=== PATIENT | male | born 1935 | race Caucasian/White ===

== ENCOUNTER 2017-09-03 11:32 | Emergency (ER) | payer MEDICARE, BC ==
--- NOTE | 2017-09-03 12:10 | EDM.PDOC ---
ED HPI GENERAL MEDICAL PROBLEM - General Chief Complaint: Laceration Stated Complaint: skin tear Time Seen by Provider: 09/03/17 11:35 Source of Information: Reports: Patient History Limitations: Reports: No Limitations - History of Present Illness INITIAL COMMENTS - FREE TEXT/NARRATIVE: Patient is a 82-year-old who comes in with multiple skin tear in the left hand dorsal aspect and left forearm he states he was in his office when he fell off the chair and scraped himself this happened at around 1031 hour prior to arrival Onset: Today Duration: Hour(s):, Other (Bleeding has stopped at the time of arrival) Location: Reports: Upper Extremity, Left Severity: Mild Improves with: Reports: None Worsens with: Reports: None Context: Reports: Activity Associated Symptoms: Reports: No Other Symptoms Left Arm Pain Score (Numeric/FACES): 2 - Related Data Allergies Allergy/AdvReac Type Severity Reaction Status Date / Time Sulfa (Sulfonamide Allergy Hives Verified 09/03/17 11:35 Antibiotics) Home Meds: Home Meds Albuterol [Ventolin HFA] 2 puff INH ONETIME PRN 12/20/13 [History] Enalapril [Vasotec] 10 mg PO QAM 12/20/13 [History] Fluticasone Propionate [Flovent HFA 220 MCG] 1 inh PO BID 12/20/13 [History] Insulin Glarg,Human.Rec.Analog [Lantus] 18 unit SUBCUT BEDTIME 12/20/13 [History ] SitaGLIPtin [Januvia] 100 mg PO QAM 12/20/13 [History] metFORMIN HCl [Metformin HCl] 1,000 mg PO QAM 12/20/13 [History] metFORMIN HCl [Metformin HCl] 500 mg PO QPM 12/20/13 [History] Lisinopril 10 mg PO DAILY 06/11/16 [History] Aspirin [Halfprin] 81 mg PO DAILY 09/03/17 [History] Sertraline [Zoloft] 25 mg PO DAILY 09/03/17 [History] Simvastatin [Zocor] 40 mg PO BEDTIME 09/03/17 [History] Past Medical History Other HEENT History: wears glasses Cardiovascular History: Reports: Hypertension Respiratory History: Reports: Asthma Gastrointestinal History: Reports: Chronic Constipation Endocrine/Metabolic History: Reports: Diabetes, Type II Social & Family History - Tobacco Use Smoking Status *Q: Never Smoker Years of Tobacco use: 2 Used Tobacco, but Quit: Yes Second Hand Smoke Exposure: No - Caffeine Use Caffeine Use: Reports: Coffee - Alcohol Use Days Per Week of Alcohol Use: 0 Number of Drinks Per Day: 2 Total Drinks Per Week: 0 - Recreational Drug Use Recreational Drug Use: No Recreational Drug Last Use: 4 coffee per day, 1 pop 3 times per week - Living Situation & Occupation Living situation: Reports: , with Family Occupation: Retired ED ROS GENERAL - Review of Systems Review Of Systems: See Below Constitutional: Reports: No Symptoms HEENT: Reports: No Symptoms Respiratory: Reports: No Symptoms Cardiovascular: Reports: No Symptoms Endocrine: Reports: Other (Diabetes type 2) GI/Abdominal: Reports: No Symptoms : Reports: No Symptoms Musculoskeletal: Reports: No Symptoms Skin: Reports: Bruising, Wound (Patient presents with multiple skin tears 3 in the left hand dorsal aspect 1 in the left forearm) Neurological: Reports: No Symptoms Psychiatric: Reports: No Symptoms Hematologic/Lymphatic: Reports: No Symptoms Immunologic: Reports: No Symptoms ED EXAM, SKIN/RASH Exam: See Below Exam Limited By: No Limitations General Appearance: Alert, WD/WN, No Apparent Distress Eye Exam: Bilateral Eye: EOMI, PERRL Ears: Normal External Exam, Normal Canal, Hearing Grossly Normal, Normal TMs Nose: Normal Inspection, Normal Mucosa, No Blood Throat/Mouth: Normal Inspection, Normal Lips, Normal Teeth, Normal Gums, Normal Oropharynx, Normal Voice, No Airway Compromise Head: Atraumatic, Normocephalic Neck: Normal Inspection, Supple, Non-Tender, Full Range of Motion Respiratory/Chest: No Respiratory Distress, Lungs Clear, Normal Breath Sounds, No Accessory Muscle Use, Chest Non-Tender Cardiovascular: Normal Peripheral Pulses, Regular Rate, Rhythm, No Edema, No Gallop, No JVD, No Murmur, No Rub GI/Abdominal: Normal Bowel Sounds, Soft, Non-Tender, No Organomegaly, No Distention, No Abnormal Bruit, No Mass (Male) Exam: Deferred Rectal (Males) Exam: Deferred Back Exam: Normal Inspection, Full Range of Motion, NT Extremities: Other (Left hand 3 small tears edges on the tear were ragged the first tear over the second MP joint was very raggedy measured about 2 cm the second abrasion and skin tear was proximal MP joint of the third finger and was 2 cm in length and this again was irregular the third abrasion laceration was over the fourth MP joint proximal and again was irregular and the length was 2cm. the forearm abrasion was 4 cm and this was in a U-shape. ) Neurological: Alert, Oriented, CN II-XII Intact, Normal Cognition, Normal Gait, Normal Reflexes, No Motor/Sensory Deficits Skin: Other (Multiple skin tags over her left forearm and left hand please see above description) Course - Vital Signs Text/Narrative:: All wounds were cleaned with saline after appropriate cleaning using the blunt part of a forceps the skin was rolled back to position after approximating the skin we use Dermabond to keep it in place this was done to all 4 wounds Last Recorded V/S: Last Vital Signs Temp 98 F 09/03/17 12:20 Pulse 89 09/03/17 12:20 Resp 16 09/03/17 12:20 BP 138/74 09/03/17 12:20 Pulse Ox 98 09/03/17 12:20 Departure - Departure Time of Disposition: 12:25 Disposition: Home, Self-Care 01 Condition: Good Clinical Impression: Broken skin - Discharge Information Instructions: Laceration Care, Adult, Tissue Adhesive Wound Care, [id number] Referrals: Rebeca Campbell NP [Primary Care Provider] - Forms: ED Department Discharge Care Plan Goals: Follow-up with primary in 1 week keep wounds clean follow handout instructions if any concerns or changes return to ER or primary care provider.
[2017-09-03 12:21] VITALS: BP 138/74
== END 2017-09-03 12:50 | disposition home or self-care (01) ==
LOC: LL.ED 11:32
DX: S51.812A Laceration without foreign body of left forearm, initial encounter (principal); I10 Essential (primary) hypertension; J45.909 Unspecified asthma, uncomplicated; Z79.4 Long term (current) use of insulin; Z79.899 Other long term (current) drug therapy; W07.XXXA Fall from chair, initial encounter
CPT/HCPCS: 12002; 12004; 99282

== ENCOUNTER 2017-09-21 13:17 | Emergency (ER) | payer MEDICARE, BC ==
[2017-09-21 13:20] VITALS: BP 148/79
--- NOTE | 2017-09-21 14:03 | EDM.PDOC ---
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 Has had problems similar to this in the past, ultimately requiring having GI at [facility] perform esophageal dilation. He reports no problems swallowing any specific food today, and has not had any PO intake since 0700. Notes that it became hard for him to swallow saliva. Cannot swallow water. Patient gets nauseated and is spitting it back up. Has funny "full" feeling in esophagus. No other complaints. Upper Epigastric Pain Score (Numeric/FACES): 6 - Related Data Allergies Allergy/AdvReac Type Severity Reaction Status Date / Time Sulfa (Sulfonamide Allergy Hives Verified 09/21/17 13:26 Antibiotics) Home Meds: Home Meds Albuterol [Ventolin HFA] 2 puff INH ONETIME PRN 12/20/13 [History] Enalapril [Vasotec] 10 mg PO QAM 12/20/13 [History] Fluticasone Propionate [Flovent HFA 220 MCG] 1 inh PO BID 12/20/13 [History] Insulin Glarg,Human.Rec.Analog [Lantus] 18 unit SUBCUT BEDTIME 12/20/13 [History ] SitaGLIPtin [Januvia] 100 mg PO QAM 12/20/13 [History] metFORMIN HCl [Metformin HCl] 1,000 mg PO QAM 12/20/13 [History] metFORMIN HCl [Metformin HCl] 1,000 mg PO QPM 12/20/13 [History] Lisinopril 10 mg PO DAILY 06/11/16 [History] Aspirin [Halfprin] 81 mg PO DAILY 09/03/17 [History] Sertraline [Zoloft] 25 mg PO DAILY 09/03/17 [History] Simvastatin [Zocor] 40 mg PO BEDTIME 09/03/17 [History] Acetaminophen [Acetaminophen Extra Strength] 1,000 mg PO DAILY 09/21/17 [History ] Past Medical History Other HEENT History: wears glasses Cardiovascular History: Reports: Hypertension Respiratory History: Reports: Asthma Gastrointestinal History: Reports: Chronic Constipation Endocrine/Metabolic History: Reports: Diabetes, Type II Social & Family History - Family History Family Medical History: Noncontributory - Tobacco Use Smoking Status *Q: Never Smoker Years of Tobacco use: 2 Used Tobacco, but Quit: Yes Month Tobacco Last Used: 0 Second Hand Smoke Exposure: No - Caffeine Use Caffeine Use: Reports: Coffee - Alcohol Use Days Per Week of Alcohol Use: 0 Number of Drinks Per Day: 2 Total Drinks Per Week: 0 - Recreational Drug Use Recreational Drug Use: No Recreational Drug Last Use: 4 coffee per day, 1 pop 3 times per week - Living Situation & Occupation Living situation: Reports: , with Family Occupation: Retired ED ROS GENERAL - Review of Systems Review Of Systems: ROS reveals no pertinent complaints other than HPI. Constitutional: Denies: Fever, Chills, Diaphoresis HEENT: Reports: No Symptoms Respiratory: Reports: No Symptoms. Denies: Wheezing, Cough Cardiovascular: Denies: Chest Pain, Dyspnea on Exertion GI/Abdominal: Reports: Difficulty Swallowing, Nausea. Denies: Abdominal Pain, Constipation, Diarrhea, Hematemesis, Vomiting : Reports: No Symptoms Musculoskeletal: Reports: No Symptoms Skin: Reports: No Symptoms Neurological: Reports: No Symptoms Psychiatric: Reports: No Symptoms ED EXAM, GENERAL - Physical Exam Exam: See Below Exam Limited By: No Limitations General Appearance: Alert, WD/WN, Other (Patient sitting comfortably. No acute distress. Spitting saliva into emesis bag periodically. ) Eye Exam: Bilateral Eye: EOMI, PERRL Ears: Normal External Exam Nose: No: Nasal Swelling, Nasal Drainage Throat/Mouth: Normal Lips, Normal Voice, No Airway Compromise Head: Atraumatic, Normocephalic Neck: Normal Inspection, Supple, Non-Tender, Full Range of Motion Respiratory/Chest: No Respiratory Distress, Lungs Clear, Normal Breath Sounds, No Accessory Muscle Use Cardiovascular: Regular Rate, Rhythm GI/Abdominal: Soft, Non-Tender Rectal (Males) Exam: Deferred Back Exam: No: CVA Tenderness (L), CVA Tenderness (R) Extremities: Normal Capillary Refill Neurological: Alert, Oriented, Normal Gait Psychiatric: Normal Affect, Normal Mood Skin Exam: Warm, Intact, Normal Color Course - Vital Signs Last Recorded V/S: Last Vital Signs Temp 36.2 C 09/21/17 13:19 Pulse 76 09/21/17 13:19 Resp 18 09/21/17 13:19 BP 148/79 H 09/21/17 13:19 Pulse Ox 98 09/21/17 13:19 - Re-Assessments/Exams Free Text/Narrative Re-Assessment/Exam: Call placed to [facility]. Discussed patient with , from GI. Suspect esophageal stricture. wished for patient to come up immediately and present to the Endoscopy unit as well as remain NPO and be definitively treated for stricture if that is indeed what is causing today's complaint. Patient said that his daughter would be able to drive him up. Patient immediately left the ER in order to get on the road to [place]. Departure - Departure Time of Disposition: 14:02 Disposition: DC/Tfer to Acute Hospital 02 Condition: Good Clinical Impression: Dysphagia Qualifiers: Dysphagia type: unspecified Qualified Code(s): R13.10 - Dysphagia, unspecified - Discharge Information Referrals: Rebeca Campbell FOREPART RASPER [Primary Care Provider] - Forms: ED Department Discharge Additional Instructions: Drive directly to [facility] in [place] with your daughter. Do not eat or drink anything. Present to second floor of [facility], Endoscopy. is expecting you and will evaluate this problem and recommend appropriate treatment.
== END 2017-09-21 14:03 ==
LOC: LL.ED 13:17
DX: R13.10 Dysphagia, unspecified (principal); I10 Essential (primary) hypertension; E11.9 Type 2 diabetes mellitus without complications; Z88.2 Allergy status to sulfonamides; Z79.4 Long term (current) use of insulin; Z79.82 Long term (current) use of aspirin; Z79.899 Other long term (current) drug therapy
CPT/HCPCS: 99284

== ENCOUNTER 2018-12-12 21:25 | Emergency (ER) | payer MEDICARE, BC ==
--- NOTE | 2018-12-12 22:37 | EDM.PDOC ---
ED HPI GENERAL MEDICAL PROBLEM - General Chief Complaint: Back Pain or Injury Stated Complaint: FALL, LEFT HIP PAIN Time Seen by Provider: 12/12/18 21:57 Source of Information: Reports: Patient History Limitations: Reports: No Limitations - History of Present Illness INITIAL COMMENTS - FREE TEXT/NARRATIVE: Patient fell in bathroom while getting ready to go to bed. Was in stocking feet at the time. Isn't certain exactly why he fell. Family members present say that patient's balance has had issues since he had a previous stroke. Patient denies hitting head or LOC. Only complaint is discomfort in left lower back area. No numbness/tingling of limbs. Able to move legs. Denies pain in pelvis/limbs/ chest/neck. No pain along spine. No headache. Patient denies vision changes. No SOB/respiratory changes. No nausea/emesis/ abdominal pain. Has chronic constipation. No bowel movement per patient/family in about 2 days. Is eating/drinking ok. Noted by EMS to have mild abrasions on elbows, and small amount blood behind left ear where hearing aid appears to have scraped skin. He denies wearing his glasses when he fell. O2 sats 92% on room air. Patient has history of COPD. He denies SOB/increased respiratory difficulties. Left Back Pain Score (Numeric/FACES): 8 - Related Data Allergies Allergy/AdvReac Type Severity Reaction Status Date / Time Sulfa (Sulfonamide Allergy Hives Verified 12/12/18 21:44 Antibiotics) Home Meds: Home Meds Insulin Glarg,Human.Rec.Analog [Lantus] 4 unit SUBCUT BEDTIME 12/20/13 [History] metFORMIN HCl [Metformin HCl] 1,000 mg PO QAM 12/20/13 [History] metFORMIN HCl [Metformin HCl] 500 mg PO QPM 12/20/13 [History] Sertraline [Zoloft] 75 mg PO DAILY 09/03/17 [History] Amiodarone [Cordarone] 0.5 tab PO DAILY 08/25/18 [History] Fluticasone/Salmeterol [Advair 250-50 Diskus] 1 inh INH BID 08/25/18 [History] Ipratropium/Albuterol Sulfate [Iprat-Albut 0.5-3(2.5) MG/3 ML] 1 ampule INH QID 08/25/18 [History] Magnesium Hydroxide [Milk of Magnesia] 60 ml PO DAILY 08/25/18 [History] Metoprolol Succinate 25 mg PO BEDTIME 08/25/18 [History] Rivaroxaban [Xarelto] 20 mg PO BEDTIME 08/25/18 [History] Tamsulosin [Flomax] 1 cap PO BEDTIME 08/25/18 [History] atorvaSTATin Calcium [Atorvastatin Calcium] 10 mg PO BEDTIME 08/25/18 [History] Docusate Sodium [Colace] 200 mg PO BID 12/12/18 [History] Past Medical History HEENT History: Reports: Hard of Hearing Other HEENT History: wears glasses, wears hearing aides Cardiovascular History: Reports: Afib, High Cholesterol, Hypertension Respiratory History: Reports: Asthma Gastrointestinal History: Reports: Chronic Constipation, Hiatal Hernia Musculoskeletal History: Reports: Osteoarthritis Neurological History: Reports: CVA 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 Psychiatric History: Reports: Anxiety, Depression Endocrine/Metabolic History: Reports: Diabetes, Type II - Past Surgical History HEENT Surgical History: Reports: Cataract Surgery GI Surgical History: Reports: Colonoscopy Male Surgical History: Reports: TURP-Transurethral Resection of Prostate Social & Family History - Family History Family Medical History: Noncontributory - Tobacco Use Smoking Status *Q: Unknown Ever Smoked - Caffeine Use Caffeine Use: Reports: None - Living Situation & Occupation Living situation: Reports: , with Family Occupation: Retired ED ROS GENERAL - Review of Systems Review Of Systems: ROS reveals no pertinent complaints other than HPI. ED EXAM,LOWER BACK PAIN/INJURY - Physical Exam Exam: See Below Exam Limited By: No Limitations General Appearance: Alert, WD/WN, No Apparent Distress Eye Exam: Bilateral Eye: EOMI, PERRL Ears: Hearing Grossly Normal (with assist of hearing aids), Other (small amount dried blood near upper ear crease left ear. No obvious abrasion/laceration. Is located right where hearing aid sits. ) Nose: No: Nasal Deformity, Nasal Swelling, Nasal Drainage Throat/Mouth: Normal Inspection, Normal Lips, Normal Voice, No Airway Compromise , Other (has full dentures) Head: Normocephalic, Other (palpation of scalp does not reveal any tenderness. ) . No: Facial Swelling, Facial Tenderness, Sinus Tenderness Neck: Normal Inspection, Supple, Full Range of Motion. No: Tender Lateral, Tender Midline Respiratory/Chest: No Respiratory Distress, Lungs Clear, Normal Breath Sounds, No Accessory Muscle Use, Chest Non-Tender Cardiovascular: Regular Rate, Rhythm, No Edema, No Murmur GI/Abdominal: Soft, Non-Tender, No Distention, Pelvis Stable (Male) Exam: Deferred Rectal (Males) Exam: Deferred Back Exam: Other (some tenderness noted with palpation of soft tissue of low back on left just above pelvis). No: CVA Tenderness (L), CVA Tenderness (R), Muscle Spasm, Vertebral Tenderness Extremities: Normal Inspection, Normal Range of Motion, Non-Tender, Normal Capillary Refill, Other (able to lift both legs without any pain complaint, good passive ROM. No pain with palpation of pelvis. ) Neurological: Alert, Normal Mood/Affect, Oriented x 3, Other (Moving limbs well) Psychiatric: Normal Affect, Normal Mood Skin Exam: Warm, Dry, Other (mild abrasions noted behind both elbows and left ear) Course - Vital Signs Last Recorded V/S: Last Vital Signs Temp 36.9 C 12/12/18 21:35 Pulse 58 L 12/12/18 21:35 Resp 14 12/12/18 21:35 BP 153/93 H 12/12/18 21:35 Pulse Ox 92 L 12/12/18 21:35 - Orders/Labs/Meds Orders: Active Orders 24 hr Category Date Time Status Lumbar Spine 2 or 3V [CR] Stat Exams 12/12/18 22:23 Ordered Pelvis 1V or 2V [CR] Stat Exams 12/12/18 21:35 Taken Meds: Medications Discontinued Medications Generic Name Dose Route Start Last Admin Trade Name Shannan PRN Reason Stop Dose Admin Acetaminophen 650 mg 12/12/18 22:39 12/12/18 22:44 Tylenol PO 12/12/18 22:40 650 mg NOW ONE Administration Lidocaine 700 mg 12/12/18 22:37 12/12/18 22:45 Lidoderm 5% TOP 12/12/18 22:38 700 mg ONETIME ONE Administration - Radiology Interpretation Free Text/Narrative:: No obvious compression fractures noted on lumbar films. Pelvis appears intact. Increased gas/stool noted. - Re-Assessments/Exams Free Text/Narrative Re-Assessment/Exam: No obvious acute bony injuries noted on pelvis/lumbar films. Radiology review pending. Patient able to roll over and change position easily in bed. Able to sit up without difficulty or pain complaint. Ambulated with assist, and then again using his walker. Patient did complain of some soreness in the left lower back but had no additional complaints. Family observe him walking and said that he was able to move around per his usual ability. At this time suspect bruising/soft tissue injury of low left back. Minor abrasions noted as stated in HPI. No additional testing indicated at this time. [place] [facility] [place] reviewed with patient and family prior to discharge. To observe for any additional changes and follow up as needed if there are concerns. Family plans on contacting [facility] in regards to the chronic constipation. Will give patient a dose of Tylenol and apply a single Lidoderm pain patch for tonight. Family to see if the patch appears helpful. If it does, and the discomfort continues, they will follow up with [facility] concerning a prescription for additional patches. They were agreeable with plan. Departure - Departure Time of Disposition: 22:49 Disposition: Home, Self-Care 01 Clinical Impression: Abrasions of multiple sites Left low back pain Qualifiers: Chronicity: acute Sciatica presence: without sciatica Qualified Code(s): M54.5 - Low back pain Fall Qualifiers: Encounter type: initial encounter Qualified Code(s): W19.XXXA - Unspecified fall, initial encounter Constipation Qualifiers: Constipation type: chronic idiopathic constipation Qualified Code(s): K59.04 - Chronic idiopathic constipation - Discharge Information *PRESCRIPTION DRUG MONITORING PROGRAM REVIEWED*: Not Applicable *COPY OF PRESCRIPTION DRUG MONITORING REPORT IN PATIENT SUSANA: Not Applicable Referrals: Rebeca Campbell NP [Primary Care Provider] - Forms: ED Department Discharge Additional Instructions: See how you feel in the morning. Observe for changes that may indicate other injuries and follow up as needed. OK to take Tylenol for pain. If you think that the Lidocaine patch on your low back was helpful, discuss with [facility] if you can have prescription for additional patches. Call [facility] and speak with them about the ongoing constipation issues. If you cannot get hold of them, consider drinking 1/2 bottle of Mag Citrate to see if that will promote a bowel movement. - My Orders Last 24 Hours: My Active Orders 12/12/18 21:35 Pelvis 1V or 2V [CR] Stat 04/03/19 22:23 Lumbar Spine 2 or 3V [CR] Stat - Assessment/Plan Last 24 Hours: My Active Orders 12/12/18 21:35 Pelvis 1V or 2V [CR] Stat 12/12/18 22:23 Lumbar Spine 2 or 3V [CR] Stat
[2018-12-12] MEDS: Acetaminophen 325 MG Tab PO ONE (22:44)
[2018-12-12] MEDS: Lidocaine 5% 700 MG Patch TOP ONE (22:45)
[2018-12-12 23:47] VITALS: BP 129/81
== END 2018-12-12 23:10 | disposition home or self-care (01) ==
LOC: LL.ED 21:25
DX: S50.312A Abrasion of left elbow, initial encounter (principal); S50.311A Abrasion of right elbow, initial encounter; S00.412A Abrasion of left ear, initial encounter; M54.5 Low back pain; K59.04 Chronic idiopathic constipation; I10 Essential (primary) hypertension; E11.9 Type 2 diabetes mellitus without complications; F32.9 Major depressive disorder, single episode, unspecified; Z88.2 Allergy status to sulfonamides; Z79.899 Other long term (current) drug therapy; W19.XXXA Unspecified fall, initial encounter; Y92.002 Bathroom of unspecified non-institutional (private) residence as the place of occurrence of the external cause
CPT/HCPCS: 72100; 72170; 99283-25; A9270-GY

== ENCOUNTER 2018-12-18 13:26 | Emergency (ER) | payer MEDICARE, BC ==
[2018-12-18 14:02] VITALS: BP 158/81
[2018-12-18 14:07] LABS: CHLORIDE,CL 97 mmol/L (98-107); SODIUM,NA 132 mmol/L (136-145)
--- NOTE | 2018-12-18 15:55 | EDM.PDOC ---
ED HPI GENERAL MEDICAL PROBLEM - General Chief Complaint: General Stated Complaint: weakness, increased falls at home Time Seen by Provider: 12/18/18 13:45 Source of Information: Reports: Patient, Family History Limitations: Reports: No Limitations - History of Present Illness INITIAL COMMENTS - FREE TEXT/NARRATIVE: Pt has had several falls over the past few days No injuries Has had a CVA in past and has chronic balance problems. No chest pain No fever No cough No dysuria No MARCH Onset: Gradual Duration: Chronic Location: Reports: Generalized Severity: Mild Improves with: Reports: None Worsens with: Reports: None Associated Symptoms: Reports: No Other Symptoms - Related Data Allergies Allergy/AdvReac Type Severity Reaction Status Date / Time Sulfa (Sulfonamide Allergy Hives Verified 12/18/18 13:43 Antibiotics) Home Meds: Home Meds Insulin Glarg,Human.Rec.Analog [Lantus] 4 unit SUBCUT BEDTIME 12/20/13 [History] metFORMIN HCl [Metformin HCl] 1,000 mg PO QAM 12/20/13 [History] metFORMIN HCl [Metformin HCl] 500 mg PO BEDTIME 12/20/13 [History] Sertraline [Zoloft] 75 mg PO BEDTIME 09/03/17 [History] Amiodarone [Cordarone] 0.5 tab PO DAILY 08/25/18 [History] Fluticasone/Salmeterol [Advair 250-50 Diskus] 1 inh INH Q12HR 08/25/18 [History] Ipratropium/Albuterol Sulfate [Iprat-Albut 0.5-3(2.5) MG/3 ML] 1 ampule INH QID 08/25/18 [History] Magnesium Hydroxide [Milk of Magnesia] 60 ml PO BEDTIME 08/25/18 [History] Metoprolol Succinate 25 mg PO BEDTIME 08/25/18 [History] Rivaroxaban [Xarelto] 20 mg PO BEDTIME 08/25/18 [History] Tamsulosin [Flomax] 1 cap PO BEDTIME 08/25/18 [History] atorvaSTATin Calcium [Atorvastatin Calcium] 10 mg PO BEDTIME 08/25/18 [History] Docusate Sodium [Colace] 200 mg PO BID@0800,2000 12/12/18 [History] Past Medical History HEENT History: Reports: Hard of Hearing Other HEENT History: wears glasses, wears hearing aides Cardiovascular History: Reports: Afib, High Cholesterol, Hypertension Respiratory History: Reports: Asthma Gastrointestinal History: Reports: Chronic Constipation, Hiatal Hernia Musculoskeletal History: Reports: Osteoarthritis Neurological History: Reports: CVA 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 Psychiatric History: Reports: Anxiety, Depression Endocrine/Metabolic History: Reports: Diabetes, Type II - Past Surgical History HEENT Surgical History: Reports: Cataract Surgery GI Surgical History: Reports: Colonoscopy Male Surgical History: Reports: TURP-Transurethral Resection of Prostate Social & Family History - Family History Family Medical History: Noncontributory - Caffeine Use Caffeine Use: Reports: None - Living Situation & Occupation Living situation: Reports: , with Family Occupation: Retired ED ROS GENERAL - Review of Systems Review Of Systems: See Below Constitutional: Reports: Weakness HEENT: Reports: No Symptoms Respiratory: Reports: No Symptoms Cardiovascular: Reports: No Symptoms GI/Abdominal: Reports: No Symptoms Musculoskeletal: Reports: No Symptoms Neurological: Reports: Weakness ED EXAM, GENERAL - Physical Exam Exam: See Below Exam Limited By: No Limitations General Appearance: No Apparent Distress Eye Exam: Bilateral Eye: EOMI Ears: Normal TMs Throat/Mouth: Normal Oropharynx Head: Atraumatic Neck: Supple Respiratory/Chest: Lungs Clear Cardiovascular: Regular Rate, Rhythm GI/Abdominal: Soft, Non-Tender Extremities: Normal Inspection Neurological: Alert, Oriented, No Motor/Sensory Deficits Course - Vital Signs Last Recorded V/S: Last Vital Signs Temp 36.9 C 12/18/18 13:36 Pulse 62 12/18/18 13:49 Resp 20 12/18/18 13:36 BP 158/81 H 12/18/18 13:36 Pulse Ox 95 12/18/18 13:36 - Orders/Labs/Meds Orders: Active Orders 24 hr Category Date Time Status Head wo Cont [CT] Stat Exams 12/18/18 13:40 Taken Labs: Laboratory Tests 12/18/18 12/18/18 12/18/18 Range/Units 13:45 13:45 15:28 WBC 6.0 (4.0-10.2) K/uL RBC 4.11 L (4.33-5.41) M/uL Hgb 12.5 L (13.1-16.8) g/dL Hct 35.8 L (39.0-49.0) % MCV 87.1 D (84.0-98.0) fL MCH 30.4 (28.2-33.3) pg MCHC 34.9 (31.7-36.0) g/dL RDW 14.0 (11.2-14.1) % Plt Count 225 (150-350) K/uL Neut % (Auto) 68.0 (45.0-80.0) % Lymph % (Auto) 14.7 (10.0-50.0) % [place] % (Auto) 12.7 (2.0-14.0) % Eos % (Auto) 4.3 (0.0-5.0) % Baso % (Auto) 0.3 (0.0-2.0) % Neut # (Auto) 4.10 (1.40-7.00) K/uL Lymph # (Auto) 0.89 (0.50-3.50) K/uL [place] # (Auto) 0.77 (0.00-1.00) K/uL Eos # (Auto) 0.26 (0.00-0.50) K/uL Baso # (Auto) 0.02 (0.00-0.20) K/uL Sodium 132 L (136-145) mmol/L Potassium 4.6 (3.5-5.1) mmol/L Chloride 97 L (98-107) mmol/L Carbon Dioxide 25.0 (21.0-32.0) mmol/L BUN 13 (7-18) mg/dL Creatinine 0.57 (0.51-1.17) mg/dL Est Cr Clr Drug Dosing 91.18 mL/min Estimated GFR (MDRD) > 60 mL/min Glucose 203 H (74-106) mg/dL Calcium 9.2 (8.5-10.1) mg/dL Total Bilirubin 0.7 (0.2-1.0) mg/dL AST 21 (15-37) U/L ALT 32 (12-78) U/L Alkaline Phosphatase 83 (46-116) IU/L Total Protein 6.4 (6.4-8.2) g/dL Albumin 3.3 L (3.4-5.0) g/dL Specimen Type Urinvoid Urine Color Yellow Urine Appearance Clear Urine pH 7.5 (5.0-9.0) Ur Specific [place] 1.020 (1.005-1.030) Urine Protein 30 H (NEGATIVE) mg/dL Urine Glucose (UA) 250 H (NEGATIVE) mg/dL Urine Ketones Trace H (NEGATIVE) mg/dL Urine Occult Blood Trace-intact H (NEGATIVE) Urine Nitrite Negative (NEGATIVE) Urine Bilirubin Negative (NEGATIVE) Urine Urobilinogen 0.2 (0.2-1.0) E.U./dL Ur Leukocyte Esterase Negative (NEGATIVE) Urine RBC 0-5 /HPF Urine WBC 0-5 /HPF Ur Epithelial Cells Rare /LPF Amorphous Sediment Few (0/HPF) /HPF Urine Bacteria Few (NONE TO FEW) /HPF Urine Mucus Few H (NEGATIVE) /LPF - Re-Assessments/Exams Free Text/Narrative Re-Assessment/Exam: 12/18/18 15:[address] without acute findings Referral made to PT Departure - Departure Time of Disposition: 16:00 Disposition: Home, Self-Care 01 Clinical Impression: Weakness - Discharge Information *PRESCRIPTION DRUG MONITORING PROGRAM REVIEWED*: Not Applicable *COPY OF PRESCRIPTION DRUG MONITORING REPORT IN PATIENT SUSANA: Not Applicable Instructions: Weakness Referrals: Rebeca Campbell NP [Primary Care Provider] - - My Orders Last 24 Hours: My Active Orders 12/18/18 13:40 Head wo Cont [CT] Stat - Assessment/Plan Last 24 Hours: My Active Orders 12/18/18 13:40 Head wo Cont [CT] Stat
== END 2018-12-18 16:15 | disposition home or self-care (01) ==
LOC: LL.ED 13:26
DX: R53.1 Weakness (principal); I48.91 Unspecified atrial fibrillation; E78.00 Pure hypercholesterolemia, unspecified; I10 Essential (primary) hypertension; J45.909 Unspecified asthma, uncomplicated; F41.9 Anxiety disorder, unspecified; F32.9 Major depressive disorder, single episode, unspecified; E11.9 Type 2 diabetes mellitus without complications; Z79.899 Other long term (current) drug therapy; Z79.4 Long term (current) use of insulin; Z88.2 Allergy status to sulfonamides
CPT/HCPCS: 36415; 70450; 80053; 81001; 85025; 99284-25

== ENCOUNTER 2020-06-28 10:17 | Inpatient (IN) | payer MEDICARE, BC, OTHER ==
[2020-06-28 11:23] LABS: CHLORIDE,CL 100 mmol/L (98-107); SODIUM,NA 135 mmol/L (136-145)
[2020-06-28] MEDS ORDERED: cefTRIAXone 1 GM in Sodium Chloride 0.9% 100 ML IV ONE (11:35)
[2020-06-28] MEDS ORDERED: Albuterol/Ipratropium 3.0-0.5 MG/3 ML Neb Soln NEB ONE (12:25)
[2020-06-28] MEDS ORDERED: 50% Dextrose in Water 50 ML Syringe IV PRN (14:03)
[2020-06-28] MEDS ORDERED: Glucagon,Human Recombinant 1 MG Vial IM PRN (14:03)
--- NOTE | 2020-06-28 14:21 | EDM.PDOC ---
ED HPI GENERAL MEDICAL PROBLEM - General Chief Complaint: General Stated Complaint: fall, mental status change Time Seen by Provider: 06/28/20 10:51 Source of Information: Reports: Patient, Family, Other (staff at [facility]) History Limitations: Reports: Other (hx mild confusion) - History of Present Illness INITIAL COMMENTS - FREE TEXT/NARRATIVE: Patient brought to ER to be checked out due to increased observed confusion, low grade temp, increased need for assistance, complaining that it was hard to urinate. Found on floor this morning after rolling out of bed but no injuries reported. - Related Data Allergies Allergy/AdvReac Type Severity Reaction Status Date / Time Sulfa (Sulfonamide Allergy Hives Verified 06/28/20 10:42 Antibiotics) Home Meds: Home Meds Insulin Glarg,Human.Rec.Analog [Lantus] 12 unit SUBCUT 12/20/13 [History] metFORMIN HCl [Metformin HCl] 1,000 mg PO QAM 12/20/13 [History] metFORMIN HCl [Metformin HCl] 500 mg PO BEDTIME 12/20/13 [History] Sertraline [Zoloft] 50 mg PO BEDTIME 09/03/17 [History] Fluticasone Propion/Salmeterol [Advair 250-50 Diskus] 1 inh INH Q12HR 08/25/18 [History] Ipratropium/Albuterol Sulfate [Iprat-Albut 0.5-3(2.5) MG/3 ML] 1 ampule INH QID 08/25/18 [History] Magnesium Hydroxide [Milk of Magnesia] 30 ml PO BID 08/25/18 [History] Metoprolol Succinate 25 mg PO BEDTIME 08/25/18 [History] Rivaroxaban [Xarelto] 20 mg PO BEDTIME 08/25/18 [History] Tamsulosin [Flomax] 1 cap PO BEDTIME 08/25/18 [History] atorvaSTATin Calcium [Atorvastatin Calcium] 10 mg PO BEDTIME 08/25/18 [History] Docusate Sodium [Colace] 200 mg PO 0800 12/12/18 [History] Diclofenac Sodium [Voltaren 1% Gel] 1 applic TOP BID PRN 06/28/20 [History] Docusate Sodium [Colace] 100 mg PO BEDTIME 06/28/20 [History] Fluticasone Propionate [Flonase] 1 inhalation NASBOTH DAILY 06/28/20 [History] Losartan [Cozaar] 25 mg PO DAILY 06/28/20 [History] Multivitamin [Multi-Vitamin Daily] 1 tab PO DAILY 06/28/20 [History] Past Medical History HEENT History: Reports: Hard of Hearing Other HEENT History: wears glasses, wears hearing aides Cardiovascular History: Reports: Afib, High Cholesterol, Hypertension Respiratory History: Reports: Asthma Gastrointestinal History: Reports: Chronic Constipation, Hiatal Hernia Musculoskeletal History: Reports: Osteoarthritis Neurological History: Reports: CVA 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 Psychiatric History: Reports: Anxiety, Depression Endocrine/Metabolic History: Reports: Diabetes, Type II - Past Surgical History HEENT Surgical History: Reports: Cataract Surgery GI Surgical History: Reports: Colonoscopy Male Surgical History: Reports: Prostatectomy, TURP-Transurethral Resection of Prostate Social & Family History - Family History Family Medical History: Noncontributory - Tobacco Use Tobacco Use Status *Q: Former Tobacco User Years of Tobacco use: 4 Packs/Tins Daily: 0.5 Used Tobacco, but Quit: Yes Month/Year Tobacco Last Used: unsure Second Hand Smoke Exposure: No - Caffeine Use Caffeine Use: Reports: None - Recreational Drug Use Recreational Drug Use: No - Living Situation & Occupation Living situation: Reports: , with Family Occupation: Retired ED ROS GENERAL - Review of Systems Review Of Systems: See Below Constitutional: Reports: Fever (100.7), Weakness HEENT: Reports: No Symptoms Respiratory: Reports: No Symptoms Cardiovascular: Reports: No Symptoms GI/Abdominal: Reports: No Symptoms : Reports: Dysuria Musculoskeletal: Reports: Other (no acute changes from baseline) Skin: Reports: No Symptoms Neurological: Reports: Confusion Psychiatric: Reports: Confusion ED EXAM, GENERAL - Physical Exam Exam: See Below Exam Limited By: No Limitations General Appearance: Alert, WD/WN, No Apparent Distress Eye Exam: Bilateral Eye: EOMI, PERRL Ears: Hearing Loss Nose: No: Nasal Deformity, Nasal Swelling, Nasal Drainage Throat/Mouth: Normal Lips, Normal Voice, No Airway Compromise Head: Atraumatic, Normocephalic Neck: Supple Respiratory/Chest: No Respiratory Distress, Lungs Clear, No Accessory Muscle Use, Decreased Breath Sounds (throughout) Cardiovascular: Regular Rate, Rhythm, No Murmur Peripheral Pulses: 2+: Radial (L), Radial (R) GI/Abdominal: Normal Bowel Sounds, Soft, Non-Tender, No Distention (Male) Exam: Deferred Rectal (Males) Exam: Deferred Back Exam: No: CVA Tenderness (L), CVA Tenderness (R), Muscle Spasm Extremities: Non-Tender, Normal Capillary Refill Neurological: Alert, No Motor/Sensory Deficits, Other (does not know year. Oriented to place/self) Psychiatric: Normal Affect, Normal Mood Skin Exam: Warm, Dry, Intact, Normal Color Course - Vital Signs Last Recorded V/S: Last Vital Signs Temp 36.2 C 06/28/20 10:55 Pulse 77 06/28/20 10:55 Resp 20 06/28/20 10:55 BP 126/57 L 06/28/20 10:55 Pulse Ox 94 L 06/28/20 10:55 - Orders/Labs/Meds Orders: Active Orders 24 hr Category Date Time Status CULTURE URINE [RM] Routine Lab 06/28/20 10:40 Received Medication Orders Albuterol/Ipratropium (Duoneb 3.0-0.5 Mg/3 Ml) ml INH QID [facility] Atorvastatin Calcium (Lipitor) 10 mg PO BEDTIME [facility] Dextrose/Water (Dextrose 50% In Water) 50 ml IV ASDIRECTED PRN PRN Reason: Hypoglycemia Docusate Sodium (Colace) 100 mg PO BEDTIME [facility] Docusate Sodium (Colace) 200 mg PO 0800 [facility] Fluticasone Propionate (Flonase) gm NASBOTH DAILY [facility] Glucagon (Glucagen) 1 mg IM ASDIRECTED PRN PRN Reason: Hypoglycemia Ceftriaxone Sodium 1 gm/ (Sodium Chloride) 100 mls @ 200 mls/hr IV Q24H [facility] Sodium Chloride (Normal Saline) 1,000 mls @ 75 mls/hr IV ASDIRECTED [facility] Insulin Glargine (Lantus) 12 unit SUBCUT 08,20 [facility] Magnesium Hydroxide (Milk Of Magnesia) 30 ml PO BID [facility] Metformin HCl (Glucophage) 500 mg PO BEDTIME [facility] Metformin HCl (Glucophage) 1,000 mg PO QAM [facility] Metoprolol Succinate (Toprol Xl) 25 mg PO BEDTIME [facility] Multivitamins/Minerals/Vitamin C (Tab-A-Suresh) 1 tab PO DAILY [facility] Non-Formulary Medication (Fluticasone/Salmeterol) 1 inh INH Q12HR [facility] Non-Formulary Medication (Losartan [Cozaar]) 25 mg PO DAILY [facility] Non-Formulary Medication (Rivaroxaban [Xarelto]) 20 mg PO BEDTIME [facility] Sertraline HCl (Zoloft) 50 mg PO BEDTIME [facility] Tamsulosin HCl (Flomax) mg PO BEDTIME [facility] Labs: Laboratory Tests 06/28/20 06/28/20 06/28/20 Range/Units 10:44 11:00 11:00 WBC 17.7 H (4.0-10.2) K/uL RBC 4.31 L (4.33-5.41) M/uL Hgb 13.2 (13.1-16.8) g/dL Hct 38.7 L (39.0-49.0) % MCV 89.8 (84.0-98.0) fL MCH 30.6 (28.2-33.3) pg MCHC 34.1 (31.7-36.0) g/dL RDW 12.7 (11.2-14.1) % Plt Count 205 (150-350) K/uL Neut % (Auto) 87.6 H (45.0-80.0) % Lymph % (Auto) 3.1 L (10.0-50.0) % [place] % (Auto) 9.1 (2.0-14.0) % Eos % (Auto) 0.1 (0.0-5.0) % Baso % (Auto) 0.1 (0.0-2.0) % Neut # (Auto) 15.47 H (1.40-7.00) K/uL Lymph # (Auto) 0.55 (0.50-3.50) K/uL [place] # (Auto) 1.60 H (0.00-1.00) K/uL Eos # (Auto) 0.01 (0.00-0.50) K/uL Baso # (Auto) 0.02 (0.00-0.20) K/uL Sodium 135 L (136-145) mmol/L Potassium 4.1 (3.5-5.1) mmol/L Chloride 100 (98-107) mmol/L Carbon Dioxide 24.3 (21.0-32.0) mmol/L BUN 13 (7-18) mg/dL Creatinine 0.68 (0.51-1.17) mg/dL Est Cr Clr Drug Dosing 81.51 mL/min Estimated GFR (MDRD) > 60 mL/min Glucose 159 H (74-106) mg/dL Lactic Acid (0.4-2.0) mmol/L Calcium 8.9 (8.5-10.1) mg/dL Magnesium 1.9 (1.8-2.4) mg/dL Total Bilirubin 1.9 H (0.2-1.0) mg/dL AST 15 (15-37) U/L ALT 21 (12-78) U/L Alkaline Phosphatase 64 (46-116) IU/L Total Protein 6.7 (6.4-8.2) g/dL Albumin 3.4 (3.4-5.0) g/dL Specimen Type Urinfol Urine Color Yellow Urine Appearance Cloudy Urine pH 7.5 (5.0-9.0) Ur Specific [place] 1.025 (1.005-1.030) Urine Protein 100 H (NEGATIVE) mg/dL Urine Glucose (UA) Negative (NEGATIVE) mg/dL Urine Ketones Trace H (NEGATIVE) mg/dL Urine Occult Blood Moderate H (NEGATIVE) Urine Nitrite Negative (NEGATIVE) Urine Bilirubin Negative (NEGATIVE) Urine Urobilinogen 0.2 (0.2-1.0) E.U./dL Ur Leukocyte Esterase Moderate H (NEGATIVE) Urine RBC 20-30 H /HPF Urine WBC 50-75 H /HPF Ur Epithelial Cells Few /LPF Urine Bacteria Many H (NONE TO FEW) /HPF 06/28/20 Range/Units 11:00 WBC (4.0-10.2) K/uL RBC (4.33-5.41) M/uL Hgb (13.1-16.8) g/dL Hct (39.0-49.0) % MCV (84.0-98.0) fL MCH (28.2-33.3) pg MCHC (31.7-36.0) g/dL RDW (11.2-14.1) % Plt Count (150-350) K/uL Neut % (Auto) (45.0-80.0) % Lymph % (Auto) (10.0-50.0) % [place] % (Auto) (2.0-14.0) % Eos % (Auto) (0.0-5.0) % Baso % (Auto) (0.0-2.0) % Neut # (Auto) (1.40-7.00) K/uL Lymph # (Auto) (0.50-3.50) K/uL [place] # (Auto) (0.00-1.00) K/uL Eos # (Auto) (0.00-0.50) K/uL Baso # (Auto) (0.00-0.20) K/uL Sodium (136-145) mmol/L Potassium (3.5-5.1) mmol/L Chloride (98-107) mmol/L Carbon Dioxide (21.0-32.0) mmol/L BUN (7-18) mg/dL Creatinine (0.51-1.17) mg/dL Est Cr Clr Drug Dosing mL/min Estimated GFR (MDRD) mL/min Glucose (74-106) mg/dL Lactic Acid 3.0 H (0.4-2.0) mmol/L Calcium (8.5-10.1) mg/dL Magnesium (1.8-2.4) mg/dL Total Bilirubin (0.2-1.0) mg/dL AST (15-37) U/L ALT (12-78) U/L Alkaline Phosphatase (46-116) IU/L Total Protein (6.4-8.2) g/dL Albumin (3.4-5.0) g/dL Specimen Type Urine Color Urine Appearance Urine pH (5.0-9.0) Ur Specific [place] (1.005-1.030) Urine Protein (NEGATIVE) mg/dL Urine Glucose (UA) (NEGATIVE) mg/dL Urine Ketones (NEGATIVE) mg/dL Urine Occult Blood (NEGATIVE) Urine Nitrite (NEGATIVE) Urine Bilirubin (NEGATIVE) Urine Urobilinogen (0.2-1.0) E.U./dL Ur Leukocyte Esterase (NEGATIVE) Urine RBC /HPF Urine WBC /HPF Ur Epithelial Cells /LPF Urine Bacteria (NONE TO FEW) /HPF Meds: Medications Generic Name Dose Route Start Last Admin Trade Name Freq PRN Reason Stop Dose Admin Albuterol/Ipratropium ml 06/28/20 16:00 Duoneb 3.0-0.5 Mg/3 Ml INH QID [facility] Atorvastatin Calcium 10 mg 06/28/20 20:00 Lipitor PO BEDTIME [facility] Dextrose/Water 50 ml 06/28/20 14:03 Dextrose 50% In Water IV ASDIRECTED PRN Hypoglycemia Docusate Sodium 100 mg 06/28/20 20:00 Colace PO BEDTIME [facility] Docusate Sodium 200 mg 06/29/20 08:00 Colace PO 0800 [facility] Fluticasone Propionate gm 06/29/20 08:00 Flonase NASBOTH DAILY [facility] Glucagon 1 mg 06/28/20 14:03 Glucagen IM ASDIRECTED PRN Hypoglycemia Ceftriaxone Sodium 1 gm/ 100 mls @ 200 mls/hr 06/29/20 08:00 Sodium Chloride IV Q24H [facility] Sodium Chloride 1,000 mls @ 75 mls/hr 06/28/20 14:15 Normal Saline IV ASDIRECTED [facility] Insulin Glargine 12 unit 06/28/20 20:00 Lantus SUBCUT 20 [facility] Magnesium Hydroxide 30 ml 06/28/20 18:00 Milk Of Magnesia PO BID [facility] Metformin HCl 500 mg 06/28/20 20:00 Glucophage PO BEDTIME [facility] Metformin HCl 1,000 mg 06/29/20 08:00 Glucophage PO QAM [facility] Metoprolol Succinate 25 mg 06/28/20 20:00 Toprol Xl PO BEDTIME [facility] Multivitamins/Minerals/Vitamin C 1 tab 06/29/20 08:00 Tab-A-Suresh PO DAILY [facility] Non-Formulary Medication 1 inh 06/28/20 20:00 Fluticasone/Salmeterol INH Q12HR [facility] Non-Formulary Medication 25 mg 06/29/20 08:00 Losartan [Cozaar] PO DAILY [facility] Non-Formulary Medication 20 mg 06/28/20 20:00 Rivaroxaban [Xarelto] PO BEDTIME [facility] Sertraline HCl 50 mg 06/28/20 20:00 Zoloft PO BEDTIME [facility] Tamsulosin HCl mg 06/28/20 20:00 Flomax PO BEDTIME [facility] Discontinued Medications Generic Name Dose Route Start Last Admin Trade Name Freq PRN Reason Stop Dose Admin Albuterol/Ipratropium 3 ml 06/28/20 12:25 06/28/20 12:28 Duoneb 3.0-0.5 Mg/3 Ml NEB 06/28/20 12:26 3 ml ONETIME ONE Administration Ceftriaxone Sodium 1 gm/ 100 mls @ 200 mls/hr 06/28/20 11:35 06/28/20 12:18 Sodium Chloride IV 06/28/20 12:04 200 mls/hr ONETIME ONE Administration - Re-Assessments/Exams Free Text/Narrative Re-Assessment/Exam: 06/28/20 14:20 UTI identified on lab work. Elevated lactic acid/WBC. Admit for further treatment. Departure - Departure Time of Disposition: 12:00 Disposition: Admitted As Inpatient 64 Condition: Good Clinical Impression: UTI, Urinary tract infectious disease - Discharge Information *PRESCRIPTION DRUG MONITORING PROGRAM REVIEWED*: Not Applicable *COPY OF PRESCRIPTION DRUG MONITORING REPORT IN PATIENT SUSANA: Not Applicable Sepsis Event Note (ED) - Evaluation Sepsis Screening Result: No Definite Risk - Focused Exam Vital Signs: Vital Signs Temp Pulse Resp BP Pulse Ox 06/28/20 10:55 36.2 C 77 20 126/57 L 94 L - Problem List & Annotations (1) UTI, Urinary tract infectious disease SNOMED Code(s): 03443152 Code(s): N39.0 - URINARY TRACT INFECTION, SITE NOT SPECIFIED Status: Acute Priority: High Current Visit: Yes Annotation/Comment:: UC pending. IV Rocephin given in ER. [place] placed/hard to advance per nursing staff. Rocephin will be continued while UC pending. Elevated Lactic Acid/recheck in AM. (2) Confusion SNOMED Code(s): 436928190 Code(s): R41.0 - DISORIENTATION, UNSPECIFIED Status: Acute Priority: Medium Current Visit: Yes Annotation/Comment:: Increased confusion overnight. Patient does have some baseline degree of age-related cognitive impairment. Observe for improvement as most likely exacerbated by UTI. (3) BPH (benign prostatic hyperplasia) SNOMED Code(s): 229007786 Code(s): N40.0 - BENIGN PROSTATIC HYPERPLASIA WITHOUT LOWER URINRY TRACT SYMP Status: Chronic Priority: Medium Current Visit: No Annotation/Comment:: Has had surgery several times in past related to prostatic issues, most recently 2017. Will recommend follow up with Urology for re-evaluation given current UTI/retention of around 500ml in ER/difficulty advancing catheter. Qualifiers: Lower urinary tract symptom presence: symptoms absent Qualified Code(s): N40.0 - Benign prostatic hyperplasia without lower urinary tract symptoms (4) Diabetes mellitus SNOMED Code(s): 59351630 Code(s): E11.9 - TYPE 2 DIABETES MELLITUS WITHOUT COMPLICATIONS Status: Chronic Priority: Medium Current Visit: No Annotation/Comment:: observe Qualifiers: Diabetes mellitus type: type 2 Diabetes mellitus transportation director insulin use: with transportation director use Diabetes mellitus complication status: with neurologic complications Diabetes mellitus complication detail: with other neurological complication Qualified Code(s): E11.49 - Type 2 diabetes mellitus with other diabetic neurological complication; Z79.4 - care home (current) use of insulin (5) Palliative care patient SNOMED Code(s): 906214578, 463507063 Code(s): Z51.5 - ENCOUNTER FOR PALLIATIVE CARE Status: Chronic Priority: High Current Visit: No (6) COPD (chronic obstructive pulmonary disease) SNOMED Code(s): 51502372 Code(s): J44.9 - CHRONIC OBSTRUCTIVE PULMONARY DISEASE, UNSPECIFIED Status: Chronic Priority: Medium Current Visit: No Annotation/Comment:: No acute complaints/has been stable Qualifiers: COPD type: unspecified COPD Qualified Code(s): J44.9 - Chronic obstructive pulmonary disease, unspecified (7) Hyperlipemia SNOMED Code(s): 70043895 Code(s): E78.5 - HYPERLIPIDEMIA, UNSPECIFIED Status: Chronic Priority: Low Current Visit: No Annotation/Comment:: under therapy Qualifiers: Hyperlipidemia type: other hyperlipidemia Qualified Code(s): E78.49 - Other hyperlipidemia; E78.4 - Other hyperlipidemia (8) Hypertension SNOMED Code(s): 84008955 Code(s): I10 - ESSENTIAL (PRIMARY) HYPERTENSION Status: Chronic Priority: Low Current Visit: No Annotation/Comment:: observe Qualifiers: Hypertension type: essential hypertension Qualified Code(s): I10 - Essential (primary) hypertension (9) Need for comfort care SNOMED Code(s): 244578950, 284854239 Code(s): VET2479 - Status: Chronic Priority: High Current Visit: Yes - Problem List Review Problem List Initiated/Reviewed/Updated: Yes - My Orders Last 24 Hours: My Active Orders 06/28/20 10:40 CULTURE URINE [RM] Routine - Assessment/Plan Admission H&P: Please use this note as an admission H&P Last 24 Hours: My Active Orders 06/28/20 10:40 CULTURE URINE [RM] Routine Assessment:: as above Plan: as above. IV fluids and IV Rocephin ordered. Observe for response. UC pending. Anticipate 3-4 days inpatient care while UTI is being treated. PT/OT consult tomorrow.
[2020-06-28] MEDS: Albuterol/Ipratropium 3.0-0.5 MG/3 ML Neb Soln INH SCH ×2 (17:05→20:32)
[2020-06-28] MEDS: Magnesium Hydroxide 400 MG/5 ML Susp 30 ML Cup PO SCH (17:06)
[2020-06-28] MEDS: Formoterol/Mometasone 200-5 MCG 8.8 GM Inhaler IH SCH (17:07)
[2020-06-28] MEDS: Tamsulosin 0.4 MG Cap.ER PO SCH (20:29)
[2020-06-28] MEDS: Docusate Sodium 100 MG Cap PO SCH (20:30)
[2020-06-28] MEDS: Sertraline 50 MG Tab PO SCH (20:31)
[2020-06-28] MEDS: Rivaroxaban 10 MG Tab PO SCH (20:31)
[2020-06-28] MEDS: metFORMIN 500 MG Tab PO SCH (20:31)
[2020-06-28] MEDS: Metoprolol Succinate 25 MG Tab.ER PO SCH (20:31)
[2020-06-28] MEDS: atorvaSTATin 10 MG Tab PO SCH (20:32)
[2020-06-28] MEDS: Insulin Glarg,Human.Rec.Analog 100 Unit/ML SUBCUT SCH (20:33)
[2020-06-29] MEDS: Acetaminophen 325 MG Tab PO PRN ×2 (00:34→08:07)
[2020-06-29 07:29] LABS: CHLORIDE,CL 102 mmol/L (98-107); SODIUM,NA 136 mmol/L (136-145)
[2020-06-29] MEDS: Docusate Sodium 100 MG Cap PO SCH ×2 (08:06→19:45)
[2020-06-29] MEDS: Multivitamin Tab PO SCH (08:06)
[2020-06-29] MEDS: Fluticasone Propionate Nasal Spray 16 GM Bottle NASBOTH SCH (08:06)
[2020-06-29] MEDS: Magnesium Hydroxide 400 MG/5 ML Susp 30 ML Cup PO SCH ×2 (08:06→17:04)
[2020-06-29] MEDS: cefTRIAXone 1 GM in Sodium Chloride 0.9% 100 ML IV SCH (08:07)
[2020-06-29] MEDS: metFORMIN 500 MG Tab PO SCH ×2 (08:07→19:45)
[2020-06-29] MEDS: Losartan 50 MG Tab PO SCH (08:10)
[2020-06-29] MEDS: Insulin Glarg,Human.Rec.Analog 100 Unit/ML SUBCUT SCH ×2 (08:11→19:43)
[2020-06-29] MEDS: Formoterol/Mometasone 200-5 MCG 8.8 GM Inhaler IH SCH ×2 (08:24→17:04)
[2020-06-29] MEDS: Sodium Chloride 0.9% 1,000 ML IV SCH ×2 (08:25→08:26)
[2020-06-29] MEDS: Levofloxacin/Dextrose 5%-Water 500 MG in Premix Bag 1 BAG IV SCH (11:40)
[2020-06-29] MEDS ORDERED: Sodium Chloride 0.9% 10 ML Syringe FLUSH PRN ×2 (13:21→15:16)
[2020-06-29] MEDS: Albuterol/Ipratropium 3.0-0.5 MG/3 ML Neb Soln INH SCH ×2 (13:48→13:49)
--- NOTE | 2020-06-29 16:54 | PCM.PN ---
- General Info Date of Service: 06/29/20 Admission Dx/Problem (Free Text): Admitted for treatment of UTI and associated confusion/mental status changes. Subjective Update: Patient pleasantly confused overnight per nursing staff. When asked how he is doing this afternoon patient smiled and says that he feels good. No acute complaints. Functional Status: Reports: Pain Controlled, Tolerating Diet, Ambulating (with assistance), Urinating (has guzman) - Review of Systems General: Reports: Fever (38.1 C overnight/low grade). Denies: Weakness, Fatigue, Malaise, Chills, Night Sweats HEENT: Reports: No Symptoms Pulmonary: Reports: No Symptoms Cardiovascular: Reports: No Symptoms Gastrointestinal: Reports: No Symptoms Genitourinary: Reports: No Symptoms Musculoskeletal: Reports: Other (no acute changes from baseline) Skin: Reports: Bruising (around hands/forearms) Neurological: Reports: Confusion (feels that he is sometimes confused and not know what is going on but says that may be a good thing sometimes), Difficulty Walking (chronic/poor balance). Denies: Headache, Change in Speech Psychiatric: Reports: Confusion - Patient Data Vitals - Most Recent: Last Vital Signs Temp 36.6 C 06/29/20 12:00 Pulse 81 06/29/20 12:00 Resp 18 06/29/20 12:00 BP 90/57 L 06/29/20 12:00 Pulse Ox 97 06/29/20 12:00 Weight - Most Recent: 85.275 kg I&O - Last 24 Hours: Intake & Output 06/29/20 06/29/20 06/29/20 06:59 14:59 22:59 Intake Total 770 Output Total 300 Balance 470 Lab Results Last 24 Hours: Laboratory Results - last 24 hr 06/28/20 06/29/20 06/29/20 Range/Units 20:27 07:05 07:05 WBC 17.0 H (4.0-10.2) K/uL RBC 3.95 L (4.33-5.41) M/uL Hgb 12.2 L (13.1-16.8) g/dL Hct 35.7 L (39.0-49.0) % MCV 90.4 (84.0-98.0) fL MCH 30.9 (28.2-33.3) pg MCHC 34.2 (31.7-36.0) g/dL RDW 12.8 (11.2-14.1) % Plt Count 170 (150-350) K/uL Neut % (Auto) 88.7 H (45.0-80.0) % Lymph % (Auto) 3.4 L (10.0-50.0) % [place] % (Auto) 7.7 (2.0-14.0) % Eos % (Auto) 0.1 (0.0-5.0) % Baso % (Auto) 0.1 (0.0-2.0) % Neut # (Auto) 15.10 H (1.40-7.00) K/uL Lymph # (Auto) 0.57 (0.50-3.50) K/uL [place] # (Auto) 1.31 H (0.00-1.00) K/uL Eos # (Auto) 0.01 (0.00-0.50) K/uL Baso # (Auto) 0.02 (0.00-0.20) K/uL Sodium 136 (136-145) mmol/L Potassium 4.0 (3.5-5.1) mmol/L Chloride 102 (98-107) mmol/L Carbon Dioxide 25.8 (21.0-32.0) mmol/L BUN 15 (7-18) mg/dL Creatinine 0.68 (0.51-1.17) mg/dL Est Cr Clr Drug Dosing 81.51 mL/min Estimated GFR (MDRD) > 60 mL/min Glucose 155 H (74-106) mg/dL POC Glucose 261 H* (65-110) mg/dl Lactic Acid (0.4-2.0) mmol/L Calcium 8.5 (8.5-10.1) mg/dL SARS-CoV-2 RNA ([facility]E) (NEGATIVE) 06/29/20 06/29/20 06/29/20 Range/Units 07:05 07:32 10:00 WBC (4.0-10.2) K/uL RBC (4.33-5.41) M/uL Hgb (13.1-16.8) g/dL Hct (39.0-49.0) % MCV (84.0-98.0) fL MCH (28.2-33.3) pg MCHC (31.7-36.0) g/dL RDW (11.2-14.1) % Plt Count (150-350) K/uL Neut % (Auto) (45.0-80.0) % Lymph % (Auto) (10.0-50.0) % [place] % (Auto) (2.0-14.0) % Eos % (Auto) (0.0-5.0) % Baso % (Auto) (0.0-2.0) % Neut # (Auto) (1.40-7.00) K/uL Lymph # (Auto) (0.50-3.50) K/uL [place] # (Auto) (0.00-1.00) K/uL Eos # (Auto) (0.00-0.50) K/uL Baso # (Auto) (0.00-0.20) K/uL Sodium (136-145) mmol/L Potassium (3.5-5.1) mmol/L Chloride (98-107) mmol/L Carbon Dioxide (21.0-32.0) mmol/L BUN (7-18) mg/dL Creatinine (0.51-1.17) mg/dL Est Cr Clr Drug Dosing mL/min Estimated GFR (MDRD) mL/min Glucose (74-106) mg/dL POC Glucose 148 H (65-110) mg/dl Lactic Acid 1.4 (0.4-2.0) mmol/L Calcium (8.5-10.1) mg/dL SARS-CoV-2 RNA ([facility]) Negative (NEGATIVE) 06/29/20 Range/Units 11:39 WBC (4.0-10.2) K/uL RBC (4.33-5.41) M/uL Hgb (13.1-16.8) g/dL Hct (39.0-49.0) % MCV (84.0-98.0) fL MCH (28.2-33.3) pg MCHC (31.7-36.0) g/dL RDW (11.2-14.1) % Plt Count (150-350) K/uL Neut % (Auto) (45.0-80.0) % Lymph % (Auto) (10.0-50.0) % [place] % (Auto) (2.0-14.0) % Eos % (Auto) (0.0-5.0) % Baso % (Auto) (0.0-2.0) % Neut # (Auto) (1.40-7.00) K/uL Lymph # (Auto) (0.50-3.50) K/uL [place] # (Auto) (0.00-1.00) K/uL Eos # (Auto) (0.00-0.50) K/uL Baso # (Auto) (0.00-0.20) K/uL Sodium (136-145) mmol/L Potassium (3.5-5.1) mmol/L Chloride (98-107) mmol/L Carbon Dioxide (21.0-32.0) mmol/L BUN (7-18) mg/dL Creatinine (0.51-1.17) mg/dL Est Cr Clr Drug Dosing mL/min Estimated GFR (MDRD) mL/min Glucose (74-106) mg/dL POC Glucose 165 H (65-110) mg/dl Lactic Acid (0.4-2.0) mmol/L Calcium (8.5-10.1) mg/dL SARS-CoV-2 RNA ([facility]) (NEGATIVE) Med Orders - Current: Current Medications Acetaminophen (Tylenol) 650 mg PO Q4H PRN PRN Reason: Fever Last Admin: 06/29/20 08:07 Dose: 650 mg Documented by: Albuterol/Ipratropium (Combivent Respimat) [address] [facility] Atorvastatin Calcium (Lipitor) 10 mg PO BEDTIME [facility] Last Admin: 06/28/20 20:32 Dose: 10 mg Documented by: Dextrose/Water (Dextrose 50% In Water) 50 ml IV ASDIRECTED PRN PRN Reason: Hypoglycemia Docusate Sodium (Colace) [address] [facility] Last Admin: 06/28/20 20:30 Dose: 100 mg Documented by: Docusate Sodium (Colace) 200 mg PO DAILY [facility] Last Admin: 06/29/20 08:06 Dose: 200 mg Documented by: Fluticasone Propionate (Flonase) [address] [facility] Last Admin: 06/29/20 08:06 Dose: 1 spray Documented by: Glucagon (Glucagen) 1 mg IM ASDIRECTED PRN PRN Reason: Hypoglycemia Ceftriaxone Sodium 1 gm/ (Sodium Chloride) 100 mls @ 200 mls/hr IV Q24H [facility] Last Admin: 06/29/20 08:07 Dose: 200 mls/hr Documented by: Levofloxacin/Dextrose 500 mg/ (Premix) 100 mls @ 100 mls/hr IV Q24H [facility] Last Admin: 06/29/20 11:40 Dose: 100 mls/hr Documented by: Influenza Virus Vaccine (Pharmacy To Dose - Influenza Vaccine) 1 each IM ONETIME ONE Stop: 06/29/20 16:00 Insulin Glargine (Lantus) [address] [facility] Last Admin: 06/29/20 08:11 Dose: 12 units Documented by: Losartan Potassium (Cozaar) [address] [facility] Last Admin: 06/29/20 08:10 Dose: Not Given Documented by: Magnesium Hydroxide (Milk Of Magnesia) [address] [facility] Last Admin: 06/29/20 08:06 Dose: 30 ml Documented by: Metformin HCl (Glucophage) [address] [facility] Last Admin: 06/28/20 20:31 Dose: 500 mg Documented by: Metformin HCl (Glucophage) 1,[address] [facility] Last Admin: 06/29/20 08:07 Dose: 1,000 mg Documented by: Metoprolol Succinate (Toprol Xl) [address] [facility] Last Admin: 06/28/20 20:31 Dose: 25 mg Documented by: Mometasone Furoate/Formoterol Fumar (Dulera 200-5 Mcg) [address] [facility] Last Admin: 06/29/20 08:24 Dose: 2 inhalation Documented by: Multivitamins/Minerals/Vitamin C (Tab-A-Suresh) [address] [facility] Last Admin: 06/29/20 08:06 Dose: 1 tab Documented by: Rivaroxaban (Xarelto) [address] [facility] Last Admin: 06/28/20 20:31 Dose: 20 mg Documented by: Sertraline HCl (Zoloft) [address] [facility] Last Admin: 06/28/20 20:31 Dose: 50 mg Documented by: Sodium Chloride (Saline Flush) [address] [facility] Sodium Chloride (Saline Flush) 10 ml FLUSH ASDIRECTED PRN PRN Reason: other Sodium Chloride (Saline Flush) 10 ml FLUSH ASDIRECTED PRN PRN Reason: Keep Vein Open Tamsulosin HCl (Flomax) 0.[address] [facility] Last Admin: 06/28/20 20:29 Dose: 0.4 mg Documented by: Discontinued Medications Albuterol/Ipratropium (Duoneb 3.0-0.5 Mg/3 Ml) 3 ml NEB ONETIME ONE Stop: 06/28/20 12:26 Last Admin: 06/28/20 12:28 Dose: 3 ml Documented by: Albuterol/Ipratropium (Duoneb 3.0-0.5 Mg/3 Ml) [address] [facility] Last Admin: 06/29/20 13:49 Dose: Not Given Documented by: Ceftriaxone Sodium 1 gm/ (Sodium Chloride) 100 mls @ 200 mls/hr IV ONETIME ONE Stop: 06/28/20 12:04 Last Admin: 06/28/20 12:18 Dose: 200 mls/hr Documented by: Sodium Chloride (Normal Saline) 1,000 mls @ 75 mls/hr IV ASDIRECTED [facility] Last Admin: 06/29/20 08:26 Dose: 75 mls/hr Documented by: - Exam Quality Assessment: DVT Prophylaxis (on Xarelto) General: Alert, Oriented (knows where he is/oriented to self), Cooperative, No Acute Distress HEENT: Pupils Equal, Pupils Reactive, EOMI, Mucous Membr. Moist/[place] Neck: Supple Lungs: Clear to Auscultation, Normal Respiratory Effort Cardiovascular: Regular Rate, Regular Rhythm GI/Abdominal Exam: Normal Bowel Sounds, Soft, Non-Tender, No Distention (Male) Exam: Deferred Back Exam: No: Muscle Spasm, Paraspinal Tenderness, Vertebral Tenderness Extremities: Non-Tender, Normal Capillary Refill Skin: Warm, Dry Neurological: No New Focal Deficit Psy/Mental Status: Alert, Normal Affect, Normal Mood Sepsis Event Note - Evaluation Sepsis Screening Result: No Definite Risk - Focused Exam Vital Signs: Vital Signs Temp Temp Pulse Resp BP Pulse Ox 06/29/20 12:00 37.0 C 36.6 C 81 18 90/57 L 97 06/29/20 07:40 37.3 C 69 20 118/70 90 L - Problem List & Annotations (1) UTI, Urinary tract infectious disease SNOMED Code(s): 25938153 Code(s): N39.0 - URINARY TRACT INFECTION, SITE NOT SPECIFIED Status: Acute Priority: High Current Visit: Yes Annotation/Comment:: IV Rocephin given in ER. Guzman placed/hard to advance per nursing staff. Recommend close follow up with Urology after discharge. Rocephin will be continued while UC pending. Levaquin added today given continued fevers last night. Elevated Lactic Acid level resolved when rechecked this morning. (2) Palliative care patient SNOMED Code(s): 150358980, 244029701 Code(s): Z51.5 - ENCOUNTER FOR PALLIATIVE CARE Status: Chronic Priority: High Current Visit: No (3) Confusion SNOMED Code(s): 077512097 Code(s): R41.0 - DISORIENTATION, UNSPECIFIED Status: Acute Priority: Medium Current Visit: Yes Annotation/Comment:: Increased confusion overnight. Patient does have some baseline degree of age-related cognitive impairment. Observe for improvement as most likely exacerbated by UTI. (4) BPH (benign prostatic hyperplasia) SNOMED Code(s): 023079667 Code(s): N40.0 - BENIGN PROSTATIC HYPERPLASIA WITHOUT LOWER URINRY TRACT SYMP Status: Chronic Priority: Medium Current Visit: No Qualifiers: Lower urinary tract symptom presence: symptoms absent Qualified Code(s): N40.0 - Benign prostatic hyperplasia without lower urinary tract symptoms Annotation/Comment:: Has had surgery several times in past related to prostatic issues, most recently 2017. Will recommend follow up with Urology for re- evaluation given current UTI/retention of around 500ml in ER/difficulty advancing catheter. (5) Diabetes mellitus SNOMED Code(s): 97249118 Code(s): E11.9 - TYPE 2 DIABETES MELLITUS WITHOUT COMPLICATIONS Status: Chronic Priority: Medium Current Visit: No Qualifiers: Diabetes mellitus type: type 2 Diabetes mellitus intermodal customer service insulin use: with intermodal customer service use Diabetes mellitus complication status: with neurologic complications Diabetes mellitus complication detail: with other neurological complication Qualified Code(s): E11.49 - Type 2 diabetes mellitus with other diabetic neurological complication; Z79.4 - skilled nursing (current) use of insulin Annotation/Comment:: observe (6) COPD (chronic obstructive pulmonary disease) SNOMED Code(s): 75888345 Code(s): J44.9 - CHRONIC OBSTRUCTIVE PULMONARY DISEASE, UNSPECIFIED Status: Chronic Priority: Medium Current Visit: No Qualifiers: COPD type: unspecified COPD Qualified Code(s): J44.9 - Chronic obstructive pulmonary disease, unspecified Annotation/Comment:: No acute complaints/has been stable (7) Hyperlipemia SNOMED Code(s): 84349894 Code(s): E78.5 - HYPERLIPIDEMIA, UNSPECIFIED Status: Chronic Priority: Low Current Visit: No Qualifiers: Hyperlipidemia type: other hyperlipidemia Qualified Code(s): E78.49 - Other hyperlipidemia; E78.4 - Other hyperlipidemia Annotation/Comment:: under therapy (8) Hypertension SNOMED Code(s): 57932604 Code(s): I10 - ESSENTIAL (PRIMARY) HYPERTENSION Status: Chronic Priority: Low Current Visit: No Qualifiers: Hypertension type: essential hypertension Qualified Code(s): I10 - Essential (primary) hypertension Annotation/Comment:: observe (9) Need for comfort care SNOMED Code(s): 215248233, 659250523 Code(s): VBU9032 - Status: Chronic Priority: High Current Visit: Yes - Problem List Review Problem List Initiated/Reviewed/Updated: Yes - My Orders Last 24 Hours: My Active Orders 06/28/20 17:25 Accu Check [Blood Glucose Check, Bedside] [RC] QIDACANDBED 06/28/20 Dinner ADA Diabetic [[place] [employer] Diet] [DIET] 06/28/20 18:00 Magnesium Hydroxide [Milk of Magnesia] 30 ml PO BID Mometasone/Formoterol [Dulera 200-5 MCG] 2 puff IH BID 06/28/20 19:37 Urinary Catheter Assessment [RC] 06/28/20 20:00 Docusate Sodium [Colace] 100 mg PO BEDTIME Insulin Glarg,Human.Rec.Analog [LantUS] 12 unit SUBCUT Q12HR Metoprolol Succinate [Toprol XL] 25 mg PO BEDTIME Rivaroxaban [Xarelto] 20 mg PO BEDTIME Sertraline [Zoloft] 50 mg PO BEDTIME Tamsulosin [Flomax] 0.4 mg PO BEDTIME atorvaSTATin [Lipitor] 10 mg PO BEDTIME metFORMIN [Glucophage] 500 mg PO BEDTIME 06/29/20 00:15 Acetaminophen [TylenoL] 650 mg PO Q4H PRN 06/29/20 07:05 CULTURE BLOOD [BC] Stat 06/29/20 08:00 Docusate Sodium [Colace] 200 mg PO DAILY Fluticasone Propionate [Flonase] 0 gm NASBOTH DAILY Losartan [Cozaar] 25 mg PO DAILY Multivitamins [Tab-A-Suresh] 1 tab PO DAILY cefTRIAXone [Rocephin] 1 gm Sodium Chloride 0.9% [Normal Saline] 100 ml IV Q24H metFORMIN [Glucophage] 1,000 mg PO QAM 06/29/20 08:52 CULTURE BLOOD [BC] Stat Blood Culture x2 Reflex Set [OM.PC] Stat Isolation [COMM] Routine 06/29/20 08:53 Chest 1V Frontal [CR] Routine 06/29/20 10:00 Levofloxacin/Dextrose 5%-Water [Levaquin in D5W 500 MG/100 ML] 500 mg Premix Bag 1 bag IV Q24H 06/29/20 13:21 Sodium Chloride 0.9% [Saline Flush] 10 ml FLUSH ASDIRECTED PRN 06/29/20 15:16 Sodium Chloride 0.9% [Saline Flush] 10 ml FLUSH ASDIRECTED PRN Peripheral IV Insertion Adult [OM.PC] Routine 06/29/20 15:17 Peripheral IV Care [RC] . DIRECTED 06/29/20 15:39 RT Post Treatment Assessment [RC] Click to Edit RT Pre-Treatment Assessment [RC] Click to Edit 06/29/20 15:59 Influenza Vaccine Charge [RC] .DISCHARGE Pharmacy to Dose - InFluenza V [Pharmacy to Dose - InFluenza Vaccine] 1 each IM ONETIME ONE 06/29/20 16:00 Albuterol/Ipratropium [Combivent Respimat] 1 gm INH QID 06/29/20 16:08 [place] Hose [Antiembolic Hose] [OM.PC] Routine 06/29/20 16:09 Antiembolic Devices [RC] 06/29/20 20:00 Sodium Chloride 0.9% [Saline Flush] 10 ml FLUSH Q12HR 06/30/20 05:15 BASIC METABOLIC PANEL,BMP [CHEM] AM CBC WITH AUTO DIFF [HEME] AM 07/01/20 05:11 UA W/MICROSCOPIC [URIN] AM - Assessment Assessment:: as above - Plan Plan:: as above. Anticipate 2 additional days of inpatient stay while UTI being treated/confusion assessed for improvement. Can plan for discharge home once UC results available and patient can be switched over to PO antibiotics. Close follow up with Urology after discharge advised. to assume care of patient in AM.
[2020-06-29] MEDS: Albuterol/Ipratropium 4 GM Inhalation Spray INH SCH ×2 (17:04→19:45)
[2020-06-29] MEDS: Rivaroxaban 10 MG Tab PO SCH (19:44)
[2020-06-29] MEDS: Sertraline 50 MG Tab PO SCH (19:44)
[2020-06-29] MEDS: Tamsulosin 0.4 MG Cap.ER PO SCH (19:45)
[2020-06-29] MEDS: Metoprolol Succinate 25 MG Tab.ER PO SCH (19:45)
[2020-06-29] MEDS: atorvaSTATin 10 MG Tab PO SCH (19:45)
[2020-06-29] MEDS: Sodium Chloride 0.9% 10 ML Syringe FLUSH SCH (19:49)
[2020-06-30] MEDS: cefTRIAXone 1 GM in Sodium Chloride 0.9% 100 ML IV SCH (07:13)
[2020-06-30] MEDS: metFORMIN 500 MG Tab PO SCH ×2 (07:15→19:26)
[2020-06-30] MEDS: Losartan 50 MG Tab PO SCH (07:15)
[2020-06-30] MEDS: Docusate Sodium 100 MG Cap PO SCH ×2 (07:15→19:27)
[2020-06-30] MEDS: Sodium Chloride 0.9% 10 ML Syringe FLUSH SCH ×2 (07:16→19:26)
[2020-06-30] MEDS: Albuterol/Ipratropium 4 GM Inhalation Spray INH SCH ×4 (07:17→19:29)
[2020-06-30] MEDS: Fluticasone Propionate Nasal Spray 16 GM Bottle NASBOTH SCH (07:17)
[2020-06-30] MEDS: Formoterol/Mometasone 200-5 MCG 8.8 GM Inhaler IH SCH ×2 (07:17→17:04)
[2020-06-30] MEDS: Insulin Glarg,Human.Rec.Analog 100 Unit/ML SUBCUT SCH ×2 (07:20→19:29)
[2020-06-30] MEDS: Multivitamin Tab PO SCH (07:26)
[2020-06-30] MEDS: Magnesium Hydroxide 400 MG/5 ML Susp 30 ML Cup PO SCH ×2 (07:26→17:04)
[2020-06-30 08:06] LABS: CHLORIDE,CL 102 mmol/L (98-107); SODIUM,NA 136 mmol/L (136-145)
[2020-06-30] MEDS: Levofloxacin/Dextrose 5%-Water 500 MG in Premix Bag 1 BAG IV SCH (09:48)
--- NOTE | 2020-06-30 11:25 | PCM.PN ---
- General Info Date of Service: 06/30/20 - Review of Systems General: Reports: Weakness Pulmonary: Reports: No Symptoms Cardiovascular: Reports: No Symptoms Gastrointestinal: Reports: No Symptoms - Patient Data Vitals - Most Recent: Last Vital Signs Temp 98.9 F 06/30/20 07:12 Pulse 70 06/30/20 07:12 Resp 20 06/30/20 07:12 BP 136/75 06/30/20 07:15 Pulse Ox 91 L 06/30/20 07:12 Weight - Most Recent: 187 lb 15.987 oz I&O - Last 24 Hours: Intake & Output 06/30/20 06/30/20 06/30/20 02:59 10:59 18:59 Intake Total 540 Output Total 700 Balance -160 Lab Results Last 24 Hours: Laboratory Results - last 24 hr 06/29/20 06/29/20 06/29/20 Range/Units 07:32 11:39 17:06 WBC (4.0-10.2) K/uL RBC (4.33-5.41) M/uL Hgb (13.1-16.8) g/dL Hct (39.0-49.0) % MCV (84.0-98.0) fL MCH (28.2-33.3) pg MCHC (31.7-36.0) g/dL RDW (11.2-14.1) % Plt Count (150-350) K/uL Neut % (Auto) (45.0-80.0) % Lymph % (Auto) (10.0-50.0) % [place] % (Auto) (2.0-14.0) % Eos % (Auto) (0.0-5.0) % Baso % (Auto) (0.0-2.0) % Neut # (Auto) (1.40-7.00) K/uL Lymph # (Auto) (0.50-3.50) K/uL [place] # (Auto) (0.00-1.00) K/uL Eos # (Auto) (0.00-0.50) K/uL Baso # (Auto) (0.00-0.20) K/uL Sodium (136-145) mmol/L Potassium (3.5-5.1) mmol/L Chloride (98-107) mmol/L Carbon Dioxide (21.0-32.0) mmol/L BUN (7-18) mg/dL Creatinine (0.51-1.17) mg/dL Est Cr Clr Drug Dosing mL/min Estimated GFR (MDRD) mL/min Glucose (74-106) mg/dL POC Glucose 148 H 165 H 201 H (65-110) mg/dl Calcium (8.5-10.1) mg/dL 06/29/20 06/30/20 06/30/20 Range/Units 21:44 07:21 07:25 WBC 11.2 H (4.0-10.2) K/uL RBC 3.94 L (4.33-5.41) M/uL Hgb 12.1 L (13.1-16.8) g/dL Hct 35.7 L (39.0-49.0) % MCV 90.6 (84.0-98.0) fL MCH 30.7 (28.2-33.3) pg MCHC 33.9 (31.7-36.0) g/dL RDW 12.8 (11.2-14.1) % Plt Count 176 (150-350) K/uL Neut % (Auto) 83.2 H (45.0-80.0) % Lymph % (Auto) 8.0 L (10.0-50.0) % [place] % (Auto) 7.4 (2.0-14.0) % Eos % (Auto) 1.2 (0.0-5.0) % Baso % (Auto) 0.2 (0.0-2.0) % Neut # (Auto) 9.34 H (1.40-7.00) K/uL Lymph # (Auto) 0.90 (0.50-3.50) K/uL [place] # (Auto) 0.83 (0.00-1.00) K/uL Eos # (Auto) 0.14 (0.00-0.50) K/uL Baso # (Auto) 0.02 (0.00-0.20) K/uL Sodium (136-145) mmol/L Potassium (3.5-5.1) mmol/L Chloride (98-107) mmol/L Carbon Dioxide (21.0-32.0) mmol/L BUN (7-18) mg/dL Creatinine (0.51-1.17) mg/dL Est Cr Clr Drug Dosing mL/min Estimated GFR (MDRD) mL/min Glucose (74-106) mg/dL POC Glucose 220 H 138 H (65-110) mg/dl Calcium (8.5-10.1) mg/dL 06/30/20 Range/Units 07:25 WBC (4.0-10.2) K/uL RBC (4.33-5.41) M/uL Hgb (13.1-16.8) g/dL Hct (39.0-49.0) % MCV (84.0-98.0) fL MCH (28.2-33.3) pg MCHC (31.7-36.0) g/dL RDW (11.2-14.1) % Plt Count (150-350) K/uL Neut % (Auto) (45.0-80.0) % Lymph % (Auto) (10.0-50.0) % [place] % (Auto) (2.0-14.0) % Eos % (Auto) (0.0-5.0) % Baso % (Auto) (0.0-2.0) % Neut # (Auto) (1.40-7.00) K/uL Lymph # (Auto) (0.50-3.50) K/uL [place] # (Auto) (0.00-1.00) K/uL Eos # (Auto) (0.00-0.50) K/uL Baso # (Auto) (0.00-0.20) K/uL Sodium 136 (136-145) mmol/L Potassium 4.0 (3.5-5.1) mmol/L Chloride 102 (98-107) mmol/L Carbon Dioxide 27.1 (21.0-32.0) mmol/L BUN 14 (7-18) mg/dL Creatinine 0.62 (0.51-1.17) mg/dL Est Cr Clr Drug Dosing 89.40 mL/min Estimated GFR (MDRD) > 60 mL/min Glucose 142 H (74-106) mg/dL POC Glucose (65-110) mg/dl Calcium 8.7 (8.5-10.1) mg/dL Nick Results Last 24 Hours: Microbiology 06/28/20 10:40 Urine Culture - Final Urine, Bladder Klebsiella Pneumoniae 06/29/20 07:05 Aerobic Blood Culture - Preliminary Blood - Venous - Lab Draw NO GROWTH AFTER 1 DAY Anaerobic Blood Culture - Preliminary NO GROWTH AFTER 1 DAY 06/28/20 11:00 Aerobic Blood Culture - Preliminary Blood - Venous NO GROWTH AFTER 1 DAY Anaerobic Blood Culture - Preliminary NO GROWTH AFTER 1 DAY Med Orders - Current: Current Medications Acetaminophen (Tylenol) 650 mg PO Q4H PRN PRN Reason: Fever Last Admin: 06/29/20 08:07 Dose: 650 mg Documented by: Albuterol/Ipratropium (Combivent Respimat) 1 gm INH QID [facility] Last Admin: 06/30/20 07:17 Dose: 1 puff Documented by: Atorvastatin Calcium (Lipitor) 10 mg PO BEDTIME [facility] Last Admin: 06/29/20 19:45 Dose: 10 mg Documented by: Dextrose/Water (Dextrose 50% In Water) 50 ml IV ASDIRECTED PRN PRN Reason: Hypoglycemia Docusate Sodium (Colace) 100 mg PO BEDTIME [facility] Last Admin: 06/29/20 19:45 Dose: 100 mg Documented by: Docusate Sodium (Colace) 200 mg PO DAILY [facility] Last Admin: 06/30/20 07:15 Dose: 200 mg Documented by: Fluticasone Propionate (Flonase) 0 gm NASBOTH DAILY [facility] Last Admin: 06/30/20 07:17 Dose: 1 spray Documented by: Glucagon (Glucagen) 1 mg IM ASDIRECTED PRN PRN Reason: Hypoglycemia Ceftriaxone Sodium 1 gm/ (Sodium Chloride) 100 mls @ 200 mls/hr IV Q24H [facility] Last Admin: 06/30/20 07:13 Dose: 200 mls/hr Documented by: Levofloxacin/Dextrose 500 mg/ (Premix) 100 mls @ 100 mls/hr IV Q24H [facility] Last Admin: 06/30/20 09:48 Dose: 100 mls/hr Documented by: Influenza Virus Vaccine (Fluad Quad [id number] Syringe) 60 mcg IM .ONCE ONE Stop: 06/30/20 18:01 Insulin Glargine (Lantus) 12 unit SUBCUT Q12HR [facility] Last Admin: 06/30/20 07:20 Dose: 12 units Documented by: Losartan Potassium (Cozaar) 25 mg PO DAILY [facility] Last Admin: 06/30/20 07:15 Dose: 25 mg Documented by: Magnesium Hydroxide (Milk Of Magnesia) 30 ml PO BID [facility] Last Admin: 06/30/20 07:26 Dose: 30 ml Documented by: Metformin HCl (Glucophage) 500 mg PO BEDTIME [facility] Last Admin: 06/29/20 19:45 Dose: 500 mg Documented by: Metformin HCl (Glucophage) 1,000 mg PO QAM [facility] Last Admin: 06/30/20 07:15 Dose: 1,000 mg Documented by: Metoprolol Succinate (Toprol Xl) 25 mg PO BEDTIME [facility] Last Admin: 06/29/20 19:45 Dose: 25 mg Documented by: Mometasone Furoate/Formoterol Fumar (Dulera 200-5 Mcg) 2 puff IH BID [facility] Last Admin: 06/30/20 07:17 Dose: 2 inhalation Documented by: Multivitamins/Minerals/Vitamin C (Tab-A-Suresh) 1 tab PO DAILY [facility] Last Admin: 06/30/20 07:26 Dose: 1 tab Documented by: Rivaroxaban (Xarelto) 20 mg PO BEDTIME [facility] Last Admin: 06/29/20 19:44 Dose: 20 mg Documented by: Sertraline HCl (Zoloft) 50 mg PO BEDTIME [facility] Last Admin: 06/29/20 19:44 Dose: 50 mg Documented by: Sodium Chloride (Saline Flush) 10 ml FLUSH Q12HR [facility] Last Admin: 06/30/20 07:16 Dose: 10 ml Documented by: Sodium Chloride (Saline Flush) 10 ml FLUSH ASDIRECTED PRN PRN Reason: other Sodium Chloride (Saline Flush) 10 ml FLUSH ASDIRECTED PRN PRN Reason: Keep Vein Open Tamsulosin HCl (Flomax) 0.4 mg PO BEDTIME [facility] Last Admin: 06/29/20 19:45 Dose: 0.4 mg Documented by: Discontinued Medications Albuterol/Ipratropium (Duoneb 3.0-0.5 Mg/3 Ml) 3 ml NEB ONETIME ONE Stop: 06/28/20 12:26 Last Admin: 06/28/20 12:28 Dose: 3 ml Documented by: Albuterol/Ipratropium (Duoneb 3.0-0.5 Mg/3 Ml) 3 ml INH QIDRT [facility] Last Admin: 06/29/20 13:49 Dose: Not Given Documented by: Ceftriaxone Sodium 1 gm/ (Sodium Chloride) 100 mls @ 200 mls/hr IV ONETIME ONE Stop: 06/28/20 12:04 Last Admin: 06/28/20 12:18 Dose: 200 mls/hr Documented by: Sodium Chloride (Normal Saline) 1,000 mls @ 75 mls/hr IV ASDIRECTED [facility] Last Admin: 06/29/20 08:26 Dose: 75 mls/hr Documented by: Influenza Virus Vaccine (Pharmacy To Dose - Influenza Vaccine) 1 each IM ONETIME ONE Stop: 06/29/20 16:00 - Exam General: Alert, Oriented Lungs: Clear to Auscultation Cardiovascular: Regular Rate GI/Abdominal Exam: Non-Tender Sepsis Event Note - Evaluation Sepsis Screening Result: No Definite Risk - Focused Exam Vital Signs: Vital Signs Temp Pulse Resp BP BP Pulse Ox 06/30/20 07:15 136/75 06/30/20 07:12 98.9 F 70 20 136/75 91 L 06/30/20 00:00 98.9 F 67 14 130/85 96 - Problem List Review Problem List Initiated/Reviewed/Updated: Yes - Assessment Assessment:: as above Imp: UTI - Plan Plan:: as above. Anticipate 2 additional days of inpatient stay while UTI being treated/confusion assessed for improvement. Can plan for discharge home once UC results available and patient can be switched over to PO antibiotics. Close follow up with Urology after discharge advised. to assume care of patient in AM. Plan: Await culture report Continue IV antibiotics
[2020-06-30] MEDS: Acetaminophen 325 MG Tab PO PRN (18:10)
[2020-06-30] MEDS: Rivaroxaban 10 MG Tab PO SCH (19:26)
[2020-06-30] MEDS: atorvaSTATin 10 MG Tab PO SCH (19:27)
[2020-06-30] MEDS: Sertraline 50 MG Tab PO SCH (19:27)
[2020-06-30] MEDS: Metoprolol Succinate 25 MG Tab.ER PO SCH (19:27)
[2020-06-30] MEDS: Tamsulosin 0.4 MG Cap.ER PO SCH (19:27)
[2020-07-01] MEDS: Albuterol/Ipratropium 4 GM Inhalation Spray INH SCH ×2 (07:29→12:01)
[2020-07-01] MEDS: Fluticasone Propionate Nasal Spray 16 GM Bottle NASBOTH SCH (07:30)
[2020-07-01] MEDS: Multivitamin Tab PO SCH (07:31)
[2020-07-01] MEDS: Magnesium Hydroxide 400 MG/5 ML Susp 30 ML Cup PO SCH (07:31)
[2020-07-01] MEDS: metFORMIN 500 MG Tab PO SCH (07:31)
[2020-07-01] MEDS: Sodium Chloride 0.9% 10 ML Syringe FLUSH SCH (07:31)
[2020-07-01] MEDS: Docusate Sodium 100 MG Cap PO SCH (07:32)
[2020-07-01] MEDS: Losartan 50 MG Tab PO SCH (07:32)
[2020-07-01] MEDS: Formoterol/Mometasone 200-5 MCG 8.8 GM Inhaler IH SCH (07:33)
[2020-07-01] MEDS: Insulin Glarg,Human.Rec.Analog 100 Unit/ML SUBCUT SCH (07:33)
[2020-07-01] MEDS: cefTRIAXone 1 GM in Sodium Chloride 0.9% 100 ML IV SCH (07:33)
[2020-07-01 07:34] VITALS: BP 137/82
[2020-07-01 07:39] LABS: CHLORIDE,CL 105 mmol/L (98-107); SODIUM,NA 139 mmol/L (136-145)
[2020-07-01 07:46] VITALS: PULSE 66
[2020-07-01] MEDS: Levofloxacin/Dextrose 5%-Water 500 MG in Premix Bag 1 BAG IV SCH ×2 (10:47→15:20)
--- NOTE | 2020-07-01 11:17 | PCM.DCSUM1 ---
Discharge Summary - Hospital Course Free Text/Narrative:: Pt admitted with UTI was On IV Rocphin and IV Levaquin Improved on IV antibiotics Tijerina removed and pt able to void without difficulty - Discharge Data Discharge Date: 07/01/20 Discharge Disposition: Home, Self-Care 01 Condition: Good - Referral to Home Health Primary Care Physician: PCP None - Discharge Diagnosis/Problem(s) (1) UTI, Urinary tract infectious disease SNOMED Code(s): 95655082 ICD Code: N39.0 - URINARY TRACT INFECTION, SITE NOT SPECIFIED Status: Acute Priority: High Current Visit: Yes Problem Details: IV Rocephin given in ER. Tijerina placed/hard to advance per nursing staff. Recommend close follow up with Urology after discharge. Rocephin will be continued while UC pending. Levaquin added today given continued fevers last night. Elevated Lactic Acid level resolved when rechecked this morning. Pt on IV Rocephin and IV Levaquin Doing well Tijerina removed and voiding without difficulty - Patient Summary/Data Consults: Consultations 06/28/20 14:01 OT Evaluation and Treatment [CONS] Routine PT Evaluation and Treatment [CONS] Routine - Patient Instructions Diet: Regular Diet as Tolerated Showering/Bathing: May Shower Notify Provider of: Fever, Increased Pain - Discharge Plan *PRESCRIPTION DRUG MONITORING PROGRAM REVIEWED*: Not Applicable *COPY OF PRESCRIPTION DRUG MONITORING REPORT IN PATIENT SUSANA: Not Applicable Prescriptions/Med Rec: Levofloxacin [Levaquin] 500 mg PO DAILY 10 Days #10 tablet Home Medications: Home Meds Insulin Glarg,Human.Rec.Analog [Lantus] 12 unit SUBCUT BID@12/20/13 [History] metFORMIN HCl [Metformin HCl] 1,000 mg PO QAM 12/20/13 [History] metFORMIN HCl [Metformin HCl] 500 mg PO BEDTIME 12/20/13 [History] Sertraline [Zoloft] 50 mg PO BEDTIME 09/03/17 [History] Fluticasone Propion/Salmeterol [Advair 250-50 Diskus] 1 inh INH Q12HR 08/25/18 [History] Ipratropium/Albuterol Sulfate [Iprat-Albut 0.5-3(2.5) MG/3 ML] 1 ampule INH QID 08/25/18 [History] Magnesium Hydroxide [Milk of Magnesia] 30 ml PO BID 08/25/18 [History] Metoprolol Succinate 25 mg PO BEDTIME 08/25/18 [History] Rivaroxaban [Xarelto] 20 mg PO BEDTIME 08/25/18 [History] Tamsulosin [Flomax] 1 cap PO BEDTIME 08/25/18 [History] atorvaSTATin Calcium [Atorvastatin Calcium] 10 mg PO BEDTIME 08/25/18 [History] Docusate Sodium [Colace] 200 mg PO DAILY@0800 12/12/18 [History] Diclofenac Sodium [Voltaren 1% Gel] 1 applic TOP BID PRN 06/28/20 [History] Docusate Sodium [Colace] 100 mg PO BEDTIME 06/28/20 [History] Fluticasone Propionate [Flonase] 1 inhalation NASBOTH DAILY 06/28/20 [History] Losartan [Cozaar] 25 mg PO DAILY 06/28/20 [History] Multivitamin [Multi-Vitamin Daily] 1 tab PO DAILY 06/28/20 [History] Levofloxacin [Levaquin] 500 mg PO DAILY 10 Days #10 tablet 07/01/20 [Rx] - Discharge Summary/Plan Comment DC Time >30 min.: No - General Info Date of Service: 07/01/20 - Review of Systems General: Reports: No Symptoms Pulmonary: Reports: No Symptoms Cardiovascular: Reports: No Symptoms Gastrointestinal: Reports: No Symptoms Genitourinary: Reports: No Symptoms Musculoskeletal: Reports: No Symptoms - Patient Data Vitals - Most Recent: Last Vital Signs Temp 98.6 F 07/01/20 07:45 Pulse 66 07/01/20 07:45 Resp 16 07/01/20 07:45 BP 137/82 07/01/20 07:45 Pulse Ox 92 L 07/01/20 07:45 Weight - Most Recent: 187 lb 15.987 oz I&O - Last 24 hours: Intake & Output 07/01/20 07/01/20 07/01/20 02:59 10:59 18:59 Intake Total 200 Balance 200 Lab Results - Last 24 hrs: Laboratory Results - last 24 hr 06/30/20 06/30/20 06/30/20 Range/Units 11:38 17:13 21:00 WBC (4.0-10.2) K/uL RBC (4.33-5.41) M/uL Hgb (13.1-16.8) g/dL Hct (39.0-49.0) % MCV (84.0-98.0) fL MCH (28.2-33.3) pg MCHC (31.7-36.0) g/dL RDW (11.2-14.1) % Plt Count (150-350) K/uL Neut % (Auto) (45.0-80.0) % Lymph % (Auto) (10.0-50.0) % [place] % (Auto) (2.0-14.0) % Eos % (Auto) (0.0-5.0) % Baso % (Auto) (0.0-2.0) % Neut # (Auto) (1.40-7.00) K/uL Lymph # (Auto) (0.50-3.50) K/uL [place] # (Auto) (0.00-1.00) K/uL Eos # (Auto) (0.00-0.50) K/uL Baso # (Auto) (0.00-0.20) K/uL Sodium (136-145) mmol/L Potassium (3.5-5.1) mmol/L Chloride (98-107) mmol/L Carbon Dioxide (21.0-32.0) mmol/L BUN (7-18) mg/dL Creatinine (0.51-1.17) mg/dL Est Cr Clr Drug Dosing mL/min Estimated GFR (MDRD) mL/min Glucose (74-106) mg/dL POC Glucose 157 H 134 H 210 H (65-110) mg/dl Calcium (8.5-10.1) mg/dL 07/01/20 07/01/20 07/01/20 Range/Units 07:05 07:05 07:09 WBC 6.3 (4.0-10.2) K/uL RBC 3.87 L (4.33-5.41) M/uL Hgb 11.9 L (13.1-16.8) g/dL Hct 35.0 L (39.0-49.0) % MCV 90.4 (84.0-98.0) fL MCH 30.7 (28.2-33.3) pg MCHC 34.0 (31.7-36.0) g/dL RDW 12.7 (11.2-14.1) % Plt Count 184 (150-350) K/uL Neut % (Auto) 75.4 (45.0-80.0) % Lymph % (Auto) 10.8 (10.0-50.0) % [place] % (Auto) 10.6 (2.0-14.0) % Eos % (Auto) 3.0 (0.0-5.0) % Baso % (Auto) 0.2 (0.0-2.0) % Neut # (Auto) 4.75 (1.40-7.00) K/uL Lymph # (Auto) 0.68 (0.50-3.50) K/uL [place] # (Auto) 0.67 (0.00-1.00) K/uL Eos # (Auto) 0.19 (0.00-0.50) K/uL Baso # (Auto) 0.01 (0.00-0.20) K/uL Sodium 139 (136-145) mmol/L Potassium 4.0 (3.5-5.1) mmol/L Chloride 105 (98-107) mmol/L Carbon Dioxide 27.0 (21.0-32.0) mmol/L BUN 13 (7-18) mg/dL Creatinine 0.60 (0.51-1.17) mg/dL Est Cr Clr Drug Dosing 92.00 mL/min Estimated GFR (MDRD) > 60 mL/min Glucose 134 H (74-106) mg/dL POC Glucose 125 H (65-110) mg/dl Calcium 8.6 (8.5-10.1) mg/dL VALERIE Results - Last 24 hrs: Microbiology 06/29/20 07:05 Aerobic Blood Culture - Preliminary Blood - Venous - Lab Draw NO GROWTH AFTER 2 DAYS Anaerobic Blood Culture - Preliminary NO GROWTH AFTER 2 DAYS 06/28/20 11:00 Aerobic Blood Culture - Preliminary Blood - Venous NO GROWTH AFTER 2 DAYS Anaerobic Blood Culture - Preliminary NO GROWTH AFTER 2 DAYS 06/28/20 10:40 Urine Culture - Final Urine, Bladder Klebsiella Pneumoniae Med Orders - Current: Current Medications Acetaminophen (Tylenol) 650 mg PO Q4H PRN PRN Reason: Fever Last Admin: 06/30/20 18:10 Dose: 650 mg Documented by: Albuterol/Ipratropium (Combivent Respimat) 1 gm INH QID [facility] Last Admin: 07/01/20 07:29 Dose: 1 puff Documented by: Atorvastatin Calcium (Lipitor) 10 mg PO BEDTIME [facility] Last Admin: 06/30/20 19:27 Dose: 10 mg Documented by: Dextrose/Water (Dextrose 50% In Water) 50 ml IV ASDIRECTED PRN PRN Reason: Hypoglycemia Docusate Sodium (Colace) 100 mg PO BEDTIME [facility] Last Admin: 06/30/20 19:27 Dose: 100 mg Documented by: Docusate Sodium (Colace) 200 mg PO DAILY [facility] Last Admin: 07/01/20 07:32 Dose: 200 mg Documented by: Fluticasone Propionate (Flonase) 0 gm NASBOTH DAILY [facility] Last Admin: 07/01/20 07:30 Dose: 1 spray Documented by: Glucagon (Glucagen) 1 mg IM ASDIRECTED PRN PRN Reason: Hypoglycemia Ceftriaxone Sodium 1 gm/ (Sodium Chloride) 100 mls @ 200 mls/hr IV Q24H [facility] Last Admin: 07/01/20 07:33 Dose: 200 mls/hr Documented by: Levofloxacin/Dextrose 500 mg/ (Premix) 100 mls @ 100 mls/hr IV Q24H [facility] Last Admin: 06/30/20 09:48 Dose: 100 mls/hr Documented by: Insulin Glargine (Lantus) 12 unit SUBCUT Q12HR [facility] Last Admin: 07/01/20 07:33 Dose: 12 units Documented by: Losartan Potassium (Cozaar) 25 mg PO DAILY [facility] Last Admin: 07/01/20 07:32 Dose: 25 mg Documented by: Magnesium Hydroxide (Milk Of Magnesia) 30 ml PO BID [facility] Last Admin: 07/01/20 07:31 Dose: 30 ml Documented by: Metformin HCl (Glucophage) 500 mg PO BEDTIME [facility] Last Admin: 06/30/20 19:26 Dose: 500 mg Documented by: Metformin HCl (Glucophage) 1,000 mg PO QAM [facility] Last Admin: 07/01/20 07:31 Dose: 1,000 mg Documented by: Metoprolol Succinate (Toprol Xl) 25 mg PO BEDTIME [facility] Last Admin: 06/30/20 19:27 Dose: 25 mg Documented by: Mometasone Furoate/Formoterol Fumar (Dulera 200-5 Mcg) 2 puff IH BID [facility] Last Admin: 07/01/20 07:33 Dose: 1 inhalation Documented by: Multivitamins/Minerals/Vitamin C (Tab-A-Suresh) 1 tab PO DAILY [facility] Last Admin: 07/01/20 07:31 Dose: 1 tab Documented by: Rivaroxaban (Xarelto) 20 mg PO BEDTIME [facility] Last Admin: 06/30/20 19:26 Dose: 20 mg Documented by: Sertraline HCl (Zoloft) 50 mg PO BEDTIME [facility] Last Admin: 06/30/20 19:27 Dose: 50 mg Documented by: Sodium Chloride (Saline Flush) 10 ml FLUSH Q12HR [facility] Last Admin: 07/01/20 07:31 Dose: 10 ml Documented by: Sodium Chloride (Saline Flush) 10 ml FLUSH ASDIRECTED PRN PRN Reason: other Last Admin: 07/01/20 08:16 Dose: 10 ml Documented by: Sodium Chloride (Saline Flush) 10 ml FLUSH ASDIRECTED PRN PRN Reason: Keep Vein Open Tamsulosin HCl (Flomax) 0.4 mg PO BEDTIME [facility] Last Admin: 06/30/20 19:27 Dose: 0.4 mg Documented by: Discontinued Medications Albuterol/Ipratropium (Duoneb 3.0-0.5 Mg/3 Ml) 3 ml NEB ONETIME ONE Stop: 06/28/20 12:26 Last Admin: 06/28/20 12:28 Dose: 3 ml Documented by: Albuterol/Ipratropium (Duoneb 3.0-0.5 Mg/3 Ml) 3 ml INH QIDRT [facility] Last Admin: 06/29/20 13:49 Dose: Not Given Documented by: Ceftriaxone Sodium 1 gm/ (Sodium Chloride) 100 mls @ 200 mls/hr IV ONETIME ONE Stop: 06/28/20 12:04 Last Admin: 06/28/20 12:18 Dose: 200 mls/hr Documented by: Sodium Chloride (Normal Saline) 1,000 mls @ 75 mls/hr IV ASDIRECTED [facility] Last Admin: 06/29/20 08:26 Dose: 75 mls/hr Documented by: Influenza Virus Vaccine (Pharmacy To Dose - Influenza Vaccine) 1 each IM ONETIME ONE Stop: 06/29/20 16:00 Influenza Virus Vaccine (Fluad Quad [id number] Syringe) 60 mcg IM .ONCE ONE Stop: 06/30/20 18:01 Last Admin: 06/30/20 17:04 Dose: 60 mcg Documented by: - Exam General: Reports: Alert, Oriented Lungs: Reports: Clear to Auscultation Cardiovascular: Reports: Regular Rate GI/Abdominal Exam: Soft, Non-Tender Psy/Mental Status: Reports: Alert, Normal Affect, Normal Mood
== END 2020-07-01 14:00 | disposition home or self-care (01) | DRG 872 ==
LOC: LL.ED 10:17 → UNDOADMIN 12:21 → LL.MS 12:21
PROVIDERS: ADMIT Emergency Medicine; ATTEND Emergency Medicine
DX: A41.9 Sepsis, unspecified organism (principal); H91.90 Unspecified hearing loss, unspecified ear; H54.7 Unspecified visual loss; N39.0 Urinary tract infection, site not specified; E87.1 Hypo-osmolality and hyponatremia; Z51.5 Encounter for palliative care; J45.909 Unspecified asthma, uncomplicated; N40.0 Benign prostatic hyperplasia without lower urinary tract symptoms; K44.9 Diaphragmatic hernia without obstruction or gangrene; E11.9 Type 2 diabetes mellitus without complications; I10 Essential (primary) hypertension; Z20.828 Contact with and (suspected) exposure to other viral communicable diseases; J44.9 Chronic obstructive pulmonary disease, unspecified; F41.9 Anxiety disorder, unspecified; E78.5 Hyperlipidemia, unspecified; M19.90 Unspecified osteoarthritis, unspecified site; E78.00 Pure hypercholesterolemia, unspecified; Z79.4 Long term (current) use of insulin; Z79.899 Other long term (current) drug therapy; F32.9 Major depressive disorder, single episode, unspecified; I48.91 Unspecified atrial fibrillation; K59.09 Other constipation; Z86.73 Personal history of transient ischemic attack (TIA), and cerebral infarction without residual deficits; F41.8 Other specified anxiety disorders; R13.10 Dysphagia, unspecified; E86.0 Dehydration; Z68.28 Body mass index [BMI] 28.0-28.9, adult; Z79.01 Long term (current) use of anticoagulants; Z87.891 Personal history of nicotine dependence; Z88.2 Allergy status to sulfonamides; Z98.49 Cataract extraction status, unspecified eye; W19.XXXA Unspecified fall, initial encounter; Y93.9 Activity, unspecified; Y92.032 Bedroom in apartment as the place of occurrence of the external cause; Z23 Encounter for immunization
CPT/HCPCS: 36415; 51702; 80053; 81001; 83605; 83735; 85025; 87040; 87086; 87088; 87186; 94761; 96365; 99285; J0696; 71045; 80048; 82962; 90653; 94640; 97110-GP; 97161-GP; 97165-GO; 97530-GO; 97530-GP; 97535-GO; 99222; 99231; 99232; 99238; A9270-GY; G0008; J1815-GY; J1956; J7030; J7620-GY; U0002

== ENCOUNTER 2020-10-05 11:04 | Emergency (ER) | payer MEDICARE, BC ==
[2020-10-05 11:10] VITALS: BP 126/61; PULSE 65
--- NOTE | 2020-10-05 12:07 | EDM.PDOC ---
ED HPI GENERAL MEDICAL PROBLEM - General Chief Complaint: Upper Extremity Injury/Pain Stated Complaint: right elbow inflammation Time Seen by Provider: 10/05/20 11:25 Source of Information: Reports: Patient, Family History Limitations: Reports: No Limitations - History of Present Illness INITIAL COMMENTS - FREE TEXT/NARRATIVE: Patient sent here from clinic for evaluation of new onset right elbow swelling/redness over weekend. Has scab on it. Patient does not recall injuring elbow. Temp 100.6 this morning. Given Tylenol. Patient otherwise feels fine. No other acute changes. Treatments RECEPTION MANAGER: Reports: Acetaminophen - Related Data Allergies Allergy/AdvReac Type Severity Reaction Status Date / Time Sulfa (Sulfonamide Allergy Hives Verified 10/05/20 11:06 Antibiotics) Home Meds: Home Meds Insulin Glarg,Human.Rec.Analog [Lantus] 12 unit SUBCUT BID@,12/20/13 [ History] metFORMIN HCl [Metformin HCl] 1,000 mg PO QAM 12/20/13 [History] metFORMIN HCl [Metformin HCl] 500 mg PO BEDTIME 12/20/13 [History] Sertraline [Zoloft] 50 mg PO BEDTIME 09/03/17 [History] Ipratropium/Albuterol Sulfate [Iprat-Albut 0.5-3(2.5) MG/3 ML] 1 ampule INH QID 08/25/18 [History] Magnesium Hydroxide [Milk of Magnesia] 30 ml PO BID 08/25/18 [History] Metoprolol Succinate 25 mg PO BEDTIME 08/25/18 [History] Rivaroxaban [Xarelto] 20 mg PO BEDTIME 08/25/18 [History] Tamsulosin [Flomax] 1 cap PO BEDTIME 08/25/18 [History] atorvaSTATin Calcium [Atorvastatin Calcium] 10 mg PO BEDTIME 08/25/18 [History] Docusate Sodium [Colace] 200 mg PO DAILY@0800 12/12/18 [History] Diclofenac Sodium [Voltaren 1% Gel] 1 applic TOP BID PRN 06/28/20 [History] Docusate Sodium [Colace] 100 mg PO BEDTIME 06/28/20 [History] Fluticasone Propionate [Flonase] 1 inhalation NASBOTH DAILY 06/28/20 [History] Losartan [Cozaar] 25 mg PO DAILY 06/28/20 [History] Multivitamin [Multi-Vitamin Daily] 1 tab PO DAILY 06/28/20 [History] Fluticasone/Salmeterol [Advair 250-50] 1 inh PO BID 10/05/20 [History] cephALEXin [Keflex] 500 mg PO Q8H #20 cap 10/05/20 [Rx] Past Medical History HEENT History: Reports: Hard of Hearing Other HEENT History: wears glasses, wears hearing aides Cardiovascular History: Reports: Afib, High Cholesterol, Hypertension Respiratory History: Reports: Asthma Gastrointestinal History: Reports: Chronic Constipation, Hiatal Hernia Musculoskeletal History: Reports: Osteoarthritis Neurological History: Reports: CVA 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 Psychiatric History: Reports: Anxiety, Depression Endocrine/Metabolic History: Reports: Diabetes, Type II - Past Surgical History HEENT Surgical History: Reports: Cataract Surgery GI Surgical History: Reports: Colonoscopy Male Surgical History: Reports: Prostatectomy, TURP-Transurethral Resection of Prostate Social & Family History - Family History Family Medical History: No Pertinent Family History - Tobacco Use Tobacco Use Status *Q: Never Tobacco User Second Hand Smoke Exposure: No - Caffeine Use Caffeine Use: Reports: Coffee - Recreational Drug Use Recreational Drug Use: No - Living Situation & Occupation Living situation: Reports: , with Family Occupation: Retired Review of Systems - Review of Systems Review Of Systems: See Below Constitutional: Reports: Fever. Denies: Chills, Diaphoresis, Weakness Eyes: Reports: Other (no acute changes) Ears: Reports: No Symptoms Nose: Reports: No Symptoms Mouth/Throat: Reports: No Symptoms Respiratory: Reports: No Symptoms Cardiovascular: Reports: No Symptoms GI/Abdominal: Reports: No Symptoms Genitourinary: Reports: No Symptoms Musculoskeletal: Reports: Joint Swelling, Other (mild discomfort right elbow) Skin: Reports: Erythema, Wound, Other (right elbow) Neurological: Reports: No Symptoms Psychiatric: Reports: No Symptoms ED EXAM, GENERAL - Physical Exam Exam: See Below Exam Limited By: No Limitations General Appearance: Alert, WD/WN, No Apparent Distress Eye Exam: Bilateral Eye: EOMI, PERRL Throat/Mouth: Normal Voice Head: Atraumatic, Normocephalic Neck: Supple Respiratory/Chest: No Respiratory Distress, Lungs Clear, Normal Breath Sounds, No Accessory Muscle Use Cardiovascular: Regular Rate, Rhythm, No Murmur GI/Abdominal: Soft, Non-Tender Extremities: Normal Capillary Refill, Other (right elbow shows swelling over bursa area. 1cm scab also noted posterior elbow. No drainage from scab. Redness noted but no increased heat. Elbow retains good ROM. ) Neurological: Alert Psychiatric: Normal Affect, Normal Mood Skin Exam: Warm, Dry, Erythema. No: Increased Warmth Course - Vital Signs Last Recorded V/S: Last Vital Signs Temp 36.7 C 10/05/20 11:09 Pulse 65 10/05/20 11:09 Resp 18 10/05/20 11:09 BP 126/61 10/05/20 11:09 Pulse Ox 96 10/05/20 11:09 - Orders/Labs/Meds Orders: Active Orders 24 hr Category Date Time Status Elbow Min 3V Rt [CR] Stat Exams 10/05/20 11:40 Ordered CULTURE BODY FLUID [RM] Routine Lab 10/05/20 11:55 Ordered Meds: Medications Discontinued Medications Generic Name Dose Route Start Last Admin Trade Name Shannan PRN Reason Stop Dose Admin Cephalexin 500 mg 10/05/20 12:08 10/05/20 12:20 Keflex PO 10/05/20 12:09 500 mg ONETIME ONE Administration - Radiology Interpretation Free Text/Narrative:: right elbow films unremarkable for acute injury/changes - Re-Assessments/Exams Free Text/Narrative Re-Assessment/Exam: 10/05/20 12:30 Uncertain if swelling/redness indicates bursitis or if actual infection present. Sample of fluid obtained (clear with some blood) from bursa area and sent for culture. Will place patient on Keflex while waiting for culture results. They are to continue to observe for changes and follow up if any worsening is noted. Departure - Departure Time of Disposition: 11:57 Disposition: Home, Self-Care 01 Condition: Good Clinical Impression: Swelling of right elbow - Discharge Information *PRESCRIPTION DRUG MONITORING PROGRAM REVIEWED*: Not Applicable *COPY OF PRESCRIPTION DRUG MONITORING REPORT IN PATIENT SUSANA: Not Applicable Prescriptions: cephALEXin [Keflex] 500 mg PO Q8H #20 cap Referrals: Rebeca Campbell NP [Primary Care Provider] - Forms: ED Department Discharge Additional Instructions: Take Keflex 500mg three times a day for a week. Watch the elbow and see if there are any changes such as increased size/pain/streaking of red towards shoulder or increased pain. We have a culture pending for fluid sample obtained from the area. This could be due to a traumatic bursitis from him bumping his elbow, or it could be due to infection. The xray looked OK, but if Radiology has any concerns once they see it you will be contacted. Sepsis Event Note (ED) - Evaluation Sepsis Screening Result: No Definite Risk - Focused Exam Vital Signs: Vital Signs Temp Pulse Resp BP Pulse Ox 10/05/20 11:09 36.7 C 65 18 126/61 96 - My Orders Last 24 Hours: My Active Orders 10/05/20 11:40 Elbow Min 3V Rt [CR] Stat 10/05/20 11:55 CULTURE BODY FLUID [RM] Routine - Assessment/Plan Last 24 Hours: My Active Orders 10/05/20 11:40 Elbow Min 3V Rt [CR] Stat 10/05/20 11:55 CULTURE BODY FLUID [RM] Routine
[2020-10-05] MEDS: Cephalexin 250 MG Cap PO ONE (12:20)
== END 2020-10-05 12:30 | disposition home or self-care (01) ==
LOC: LL.ED 11:04
DX: M79.89 Other specified soft tissue disorders (principal); I48.91 Unspecified atrial fibrillation; E78.00 Pure hypercholesterolemia, unspecified; I10 Essential (primary) hypertension; J45.909 Unspecified asthma, uncomplicated; M19.90 Unspecified osteoarthritis, unspecified site; E11.9 Type 2 diabetes mellitus without complications; Z88.2 Allergy status to sulfonamides; Z79.4 Long term (current) use of insulin; Z79.899 Other long term (current) drug therapy; Z79.01 Long term (current) use of anticoagulants
CPT/HCPCS: 73080-RT; 87070; 87205; 99283; 99283-25; A9270-GY

== ENCOUNTER 2022-05-05 11:16 | Observation (INO) | payer MEDICARE, BC ==
[2022-05-05 12:13] LABS: PTT,PARTIAL THROMBOPLSTIN TIME 25.8 SEC (23.6-29.8)
[2022-05-05 12:16] LABS: ANION GAP 12.4 meq/L (7-15); CHLORIDE,CL 97 mmol/L (98-107); SODIUM,NA 133 mmol/L (136-145)
[2022-05-05 12:17] LABS: ESTIMATED GFR 52 mL/min (>=60)
[2022-05-05] MEDS ORDERED: Sodium Chloride 0.9% 10 ML Syringe FLUSH PRN (15:54)
[2022-05-05] MEDS ORDERED: Sodium Chloride 0.9% 1,000 ML IV ONE (16:45)
[2022-05-05 17:13] LABS: CORONAVIRUS COVID-19 NAA NEGATIVE (NEGATIVE); RESPIRATORY SYNCYTIAL VIR NAA NEGATIVE (NEGATIVE)
[2022-05-05] MEDS ORDERED: Sodium Chloride 0.9% 1,000 ML IV SCH (18:00)
[2022-05-05] MEDS ORDERED: Acetaminophen 500 MG Tab PO PRN (18:03)
[2022-05-05] MEDS: Albuterol/Ipratropium 3.0-0.5 MG/3 ML Neb Soln INH SCH (19:57)
[2022-05-05] MEDS: Formoterol/Mometasone 200-5 MCG 8.8 GM Inhaler IH SCH ×2 (19:57→20:07)
[2022-05-05] MEDS: atorvaSTATin 10 MG Tab PO SCH (19:58)
[2022-05-05] MEDS: Sertraline 25 MG Tab PO SCH (19:58)
[2022-05-05] MEDS: Rivaroxaban 10 MG Tab PO SCH (19:58)
[2022-05-05] MEDS: Tamsulosin 0.4 MG Cap.ER PO SCH (19:58)
[2022-05-06] MEDS: Losartan 25 MG Tab PO SCH (07:38)
[2022-05-06] MEDS: Magnesium Hydroxide 400 MG/5 ML Susp 30 ML Cup PO SCH (07:38)
[2022-05-06] MEDS: metFORMIN 500 MG Tab PO SCH ×2 (07:38→17:11)
[2022-05-06] MEDS: Multivitamin Tab PO SCH (07:38)
[2022-05-06] MEDS: Albuterol/Ipratropium 3.0-0.5 MG/3 ML Neb Soln INH SCH ×4 (07:38→19:44)
[2022-05-06] MEDS: Formoterol/Mometasone 200-5 MCG 8.8 GM Inhaler IH SCH ×2 (07:51→17:10)
[2022-05-06 12:40] LABS: ANION GAP 13.9 meq/L (7-15)
[2022-05-06] MEDS: Rivaroxaban 10 MG Tab PO SCH (19:44)
[2022-05-06] MEDS: atorvaSTATin 10 MG Tab PO SCH (19:45)
[2022-05-06] MEDS: Sertraline 25 MG Tab PO SCH (19:45)
[2022-05-06] MEDS: Tamsulosin 0.4 MG Cap.ER PO SCH (19:45)
[2022-05-07] MEDS: metFORMIN 500 MG Tab PO SCH (08:19)
[2022-05-07] MEDS: Albuterol/Ipratropium 3.0-0.5 MG/3 ML Neb Soln INH SCH ×2 (08:19→12:12)
[2022-05-07] MEDS: Losartan 25 MG Tab PO SCH (08:19)
[2022-05-07] MEDS: Multivitamin Tab PO SCH (08:19)
[2022-05-07 08:20] VITALS: BP 143/94
[2022-05-07] MEDS: Magnesium Hydroxide 400 MG/5 ML Susp 30 ML Cup PO SCH (08:20)
[2022-05-07] MEDS: Formoterol/Mometasone 200-5 MCG 8.8 GM Inhaler IH SCH (08:20)
[2022-05-07 08:24] VITALS: PULSE 80
== END 2022-05-07 15:45 | disposition home or self-care (01) ==
LOC: LL.ED 11:16 → LL.MS 16:52
PROVIDERS: ADMIT Physician Assistant; ATTEND Physician Assistant
DX: R41.0 Disorientation, unspecified (principal); I48.91 Unspecified atrial fibrillation; I10 Essential (primary) hypertension; E78.5 Hyperlipidemia, unspecified; N40.0 Benign prostatic hyperplasia without lower urinary tract symptoms; E11.9 Type 2 diabetes mellitus without complications; F03.90 Unspecified dementia, unspecified severity, without behavioral disturbance, psychotic disturbance, mood disturbance, and anxiety; E78.00 Pure hypercholesterolemia, unspecified; J45.909 Unspecified asthma, uncomplicated; K59.09 Other constipation; F41.9 Anxiety disorder, unspecified; F32.A Depression, unspecified; M19.90 Unspecified osteoarthritis, unspecified site; E86.0 Dehydration; Z98.890 Other specified postprocedural states; Z88.2 Allergy status to sulfonamides; Z79.84 Long term (current) use of oral hypoglycemic drugs; Z79.02 Long term (current) use of antithrombotics/antiplatelets; Z79.01 Long term (current) use of anticoagulants; Z20.822 Contact with and (suspected) exposure to COVID-19; Z79.811 Long term (current) use of aromatase inhibitors; Z79.51 Long term (current) use of inhaled steroids
CPT/HCPCS: 0241U; 36415; 70450; 71045; 80053; 80307; 81001; 82947; 83735; 84484; 85025; 85610; 85730; 93005; 94640; 97162; 97166; 99285; A9270; J3490; J7030; 93010; 96360; 96361; 99220; 99225; G0378; J7620-GY

== ENCOUNTER 2022-05-18 21:10 | Emergency (ER) | payer MEDICARE, BC ==
[2022-05-18] MEDS: Glycerin 5.4 GM/7.5 ML Suppository ONE (21:51)
[2022-05-18 23:06] VITALS: BP 134/87; PULSE 61
== END 2022-05-18 22:40 | disposition home or self-care (01) ==
LOC: LL.ED 21:10
DX: K59.04 Chronic idiopathic constipation (principal); N40.1 Benign prostatic hyperplasia with lower urinary tract symptoms; R33.8 Other retention of urine; I48.91 Unspecified atrial fibrillation; I10 Essential (primary) hypertension; E11.9 Type 2 diabetes mellitus without complications; E78.5 Hyperlipidemia, unspecified; Z88.2 Allergy status to sulfonamides; Z79.899 Other long term (current) drug therapy; Z79.01 Long term (current) use of anticoagulants; Z79.84 Long term (current) use of oral hypoglycemic drugs; Z96.0 Presence of urogenital implants
CPT/HCPCS: 51702; 99283; 99284; A9270-GY

== ENCOUNTER 2022-08-07 16:41 | Emergency (ER) | payer MEDICARE, BC ==
[2022-08-07 16:48] VITALS: BP 141/77; PULSE 71
[2022-08-07] MEDS: Lidocaine 2% HCl 11 ML Jelly Filled Syringe ONE ×2 (17:00→19:53)
== END 2022-08-07 18:45 ==
LOC: LL.ED 16:41
DX: R31.9 Hematuria, unspecified (principal); I48.91 Unspecified atrial fibrillation; I10 Essential (primary) hypertension; J44.9 Chronic obstructive pulmonary disease, unspecified; M19.90 Unspecified osteoarthritis, unspecified site; E11.9 Type 2 diabetes mellitus without complications; Z88.2 Allergy status to sulfonamides; Z79.84 Long term (current) use of oral hypoglycemic drugs; Z79.01 Long term (current) use of anticoagulants; Z79.899 Other long term (current) drug therapy; Z96.0 Presence of urogenital implants
CPT/HCPCS: 36415; 85025; 99283; A9270-GY

== ENCOUNTER 2022-10-12 11:33 | Emergency (ER) | payer MEDICARE, BC ==
[2022-10-12 14:13] VITALS: BP 106/60; PULSE 83
== END 2022-10-12 14:00 ==
LOC: LL.ED 11:33
DX: M25.552 Pain in left hip (principal); I48.91 Unspecified atrial fibrillation; E78.00 Pure hypercholesterolemia, unspecified; I10 Essential (primary) hypertension; J44.9 Chronic obstructive pulmonary disease, unspecified; E11.9 Type 2 diabetes mellitus without complications; Z88.2 Allergy status to sulfonamides; Z86.73 Personal history of transient ischemic attack (TIA), and cerebral infarction without residual deficits; Z79.84 Long term (current) use of oral hypoglycemic drugs; Z79.899 Other long term (current) drug therapy; W18.30XA Fall on same level, unspecified, initial encounter
CPT/HCPCS: 99284